=== PATIENT | male | born 1970 | race Caucasian/White ===

== ENCOUNTER → 2018-02-24 16:18 | Outpatient (CLI) | payer BC, SELFPAY ==
[2018-02-24 17:34] LABS: AST(SGOT) 33 U/L (15-37); Alanine Aminotransfer ALT/SGPT 51 U/L (16-61); Alkaline Phosphatase 100 U/L (45-117); Bilirubin, Direct 0.11 mg/dL (0.00-0.30); Cholesterol 150 mg/dL (200); High Density Lipoprotein 46 mg/dL; Triglycerides 180 mg/dL; Very Low Density Lipoprotein 36 mg/dL (5-40)
== END ==
PROVIDERS: Family Provider Family Medicine; PCP Family Medicine; Visit Provider Family Medicine
DX: E78.5 Hyperlipidemia, unspecified (principal)
CPT/HCPCS: 36415; 80061; 80076

== ENCOUNTER 2019-01-07 09:07 | Observation (INO) | payer BC, SELFPAY ==
[2019-01-07] VITALS (8 sets, daily range): BP systolic 120–150; BP diastolic 72–98; PULSE 77–98; RESP 16–18; TEMP 36.4–37.2; O2SAT 97–99; BMI 32.6; BMI 32.1
--- NOTE | 2019-01-07 09:34 | RAD_ITS ---
STUDY: X-RAY CHEST REASON FOR EXAM: Male, 48 years old. Chest pain. TECHNIQUE: Single AP portable view of the chest. COMPARISON: Comparison is made with prior study dated November 19, 2010. FINDINGS: EKG electrodes are seen. The lungs are clear and expanded. There is no demonstrated pleural abnormality. There is borderline cardiomegaly. Normal mediastinum and joceline. Normal visualized pulmonary arteries. There is atherosclerotic tortuosity of the aortic arch and descending thoracic aorta. There are mild degenerative changes of the visualized thoracic spine. Normal visualized ribs, clavicles, and shoulders. There is no demonstrated abnormality of the visualized soft tissue structures of the upper abdomen. RAD/Chest 1 View (Portable) IMPRESSION: Borderline cardiomegaly. Electronically Signed: Poncho Ugarte, at 10:16 EDT , Service support ,
--- NOTE | 2019-01-07 09:34 | EKG12_ITS ---
Test Reason : CP Blood Pressure : / mmHG Vent. Rate : 097 BPM Atrial Rate : 097 BPM P-R Int : 176 ms QRS Dur : 104 ms QT Int : 362 ms P-R-T Axes : 052 074 019 degrees QTc Int : 459 ms Normal sinus rhythm Incomplete right bundle branch block Borderline ECG Confirmed by TSERING CANALES, JOI ([id number]), film editor supervisor JAE SHEPPARD ([id number]) on 01/10/2019 11:14:29 AM Referred By: BALDO Confirmed By:JOI CAGLE MD
--- NOTE | 2019-01-07 09:45 | ED.DCSUM_ITS ---
- ER Visit Summary Date of Service: 01/07/19 Chief Complaint: Chest pain History of Present Illness: The patient is a 48 M who presents with chest pain that began this morning. Patient states the pain came on rather suddenly. Patient describes the pain as a heaviness and pressure. Patient states that it felt like an elephant was sitting on his chest earlier today. Now, the patient states that it only feels like a cow was sitting on his chest. Patient admits to some shortness of breath. Patient admits to a very slight cough. Patient states he has had a fever of 100.6 today. Patient also admits to some lightheadedness. Patient denies any diaphoresis. Patient denies any nausea or vomiting. Patient denies any PE risk factors. Cardiac risk factors include hypertension, hypercholesterolemia, and family history of coronary artery disease. Physical Examination: Vital signs are stable. Patient is afebrile. Patient is in no acute distress. Oral mucosa is pink and moist. Neck is supple. Trachea is midline. There is no JVD noted. Heart was regular rate and rhythm. Lungs are clear and equal bilateral. Abdomen is soft. Bowel sounds are normal. There is no tenderness. There is no guarding noted. Skin is warm dry. Cranial nerves II through XII are intact. There are no focal motor or sensory deficits noted. The remaining physical exam is within normal limits. Test Results: EKG showed normal sinus rhythm with a rate of 97. There is some T wave inversion noted in lead III only. BC, basic metabolic profile, and troponin were obtained. Portable chest x-ray does not show any evidence of acute cardiopulmonary process. Emergency Department Course and Treatment: Patient had aspirin prior to arrival. Patient was given sublingual nitroglycerin here with no improvement of his pain. Patient was given a dose of morphine. Patient has a HEART score of 5. Case was discussed with the hospitalist. Patient will be admitted for observation. Patient understood and was agreeable with the plan. All questions were answered. Disposition: Admit for observation Impression: Chest pain This note was generated with [employer] dictation software. It may contain incorrect words, spelling, and punctuation that were not noted in review of the chart prior to signing ED Disposition - Plan for ED Patient: Disposition: Acute Care [facility] Diagnosis: Chest pain Referrals: Lee Stewart MD [Primary Care Provider] -
[2019-01-07 09:49] LABS: Absolute Lymphocyte Count 0.72 X10^3/ul (0.83-4.51); Absolute Neutrophil Count 8.6 X10^3/uL (2.0-7.7); Basophil# 0.02 X10^3/uL; Basophil% 0.2 % (0-1); Eosinophil# 0.08 X10^3/uL; Eosinophils% 0.8 % (0-5); Hematocrit 42.4 % (40-54); Hemoglobin 14.3 g/dl (13.0-16.5); Lymphocyte # 0.72 X10^3/ul (4.0); Lymphocyte % 7.2 % (19-41); Mean Corp Hgb Conc 33.7 g/gl (32-36); Mean Corpuscular Hgb 28.3 pg (27.0-32.0); Mean Platelet Vol. 10.1 fl (6.2-12.0); Monocyte# 0.65 X10^3/uL; Monocyte% 6.5 % (0-10); Neutrophil # 8.57 X10^3/uL (2.7-7.7); Neutrophil % 85.1 % (47-70); Platelet Count 279 K/mm3 (150-450); RBC Distribution Width CV 13.5 % (11.6-14.6); RBC Distribution Width SD 40.7 fl (35.1-43.9); Red Blood Count 5.05 M/mm3 (4.6-6.2); White Blood Count 10.1 K/mm3 (4.4-11.0)
[2019-01-07 09:50] LABS: POSITIVE COUNT NO; POSITIVE DIFFERENTIAL NO; POSITIVE MORPHOLOGY NO
[2019-01-07 10:01] LABS: Anion Gap 6 (5-15); BUN 19 mg/dL (7-18); BUN/Creat Ratio 19.3 RATIO (10-20); Calcium,Total 8.9 mg/dL (8.5-10.1); Chloride 103 mmol/L (98-107); Creatinine, Serum 0.99 mg/dL (0.70-1.30); EST Glomerular Filtration Rate 86 mL/min (>60); Est Glom Filt Rate - Afr Amer 104 mL/min (>60); Estimated Creatinine Clearance 87.32 ml/min; Glucose 93 mg/dL (74-106); Potassium 3.8 mmol/L (3.5-5.1); Sodium Level 137 mmol/L (136-145)
[2019-01-07] MEDS: Acetaminophen 500 MG Tablet 1000 MG PO (10:23)
--- NOTE | 2019-01-07 11:32 | PN_ITS ---
Patient Problems: Active and Suspected Problems Chest pain (Acute) Vitals/I&O's: Vital Signs Temp Pulse Resp BP Pulse Ox 97.6 F L 83 18 120/98 H 98 01/07/19 09:08 01/07/19 11:31 01/07/19 11:31 01/07/19 11:31 01/07/19 11:31 Oxygen Delivery Method Room Air Weight: 97.5 kg Body Mass Index (BMI) 32.6 Laboratory Results 01/07/19 09:24: WBC 10.1, RBC 5.05, Hgb 14.3, Hct 42.4, MCV 84.0, MCH 28.3, MCHC 33.7, RDW 13.5, RDW Differential 40.7, Plt Count 279, MPV 10.1, Immature Gran % (Auto) 0.200, Neut % (Auto) 85.1 H, Lymph % (Auto) 7.2 L, [place] % (Auto) 6.5, Eos % (Auto) 0.8, Baso % (Auto) 0.2, Absolute Neuts (auto) 8.6 H, Absolute Lymphs (a uto) 0.72 L, Total Counted Not Reportable 01/07/19 09:24: Sodium 137, Potassium 3.8, Chloride 103, Carbon Dioxide 28.0, Anion Gap 6, BUN 19 H, Creatinine 0.99, Estim Creat Clear Calc 87.32, Est GFR (MDRD) Af Amer 104, Est GFR (MDRD) Non-Af 86, BUN/Creatinine Ratio 19.3, Glucose 93, Calcium 8.9, Troponin I < 0.015 Medical Necessity - Tobacco Use Smoking Status: Former smoker Assessment/Plan All Active Problems Chest pain (Acute)
--- NOTE | 2019-01-07 12:50 | EKG12_ITS ---
Test Reason : CP ADMISSION Blood Pressure : / mmHG Vent. Rate : 069 BPM Atrial Rate : 069 BPM P-R Int : 160 ms QRS Dur : 108 ms QT Int : 402 ms P-R-T Axes : 013 047 -10 degrees QTc Int : 430 ms Normal sinus rhythm Incomplete right bundle branch block Borderline ECG When compared with ECG of 07-JAN-2019 09:07, MANUAL COMPARISON REQUIRED, DATA IS UNCONFIRMED Confirmed by TSERING CANALES, JOI ([id number]), legal editor JAE SHEPPARD ([id number]) on 01/11/2019 8:12:02 AM Referred By: POORNIMA Confirmed By:JOI CAGLE MD
--- NOTE | 2019-01-07 13:26 | STEWCON_ITS ---
Reason For Study: CHEST PAIN Stress Results Protocol: Syd Protocol WITH DEFINITY Maximum Predicted HR: 171 bpm Target HR: 145 bpm % Maximum Predicted HR: 88 % DurationHeart Rate Stage (mm:ss) (bpm) BP Comment BASELINE 73 122/800.3 ML DEFINITY STAGE 1 3:00 103 142/62 STAGE 2 3:00 114 162/68 STAGE 3 3:00 127 170/60 STAGE 4 1:16 150 / 0.2 ML DEFINITY RECOVERY 99 140/700.1 ML DEFINITY Stress Duration: 10:16 mm:ss Maximum Stress HR: 150 bpm Baseline Echocardiogram Findings Stress Echo Wall motion Data Resting WM Intermediate WM Stress WM Resting Wall Motion Wall Motion Stress No regional wall motion No regional wall motion abnormalities noted. abnormalities noted. Ejection Fraction 55 %. Ejection Fraction 70 %. Interpretation Summary Exercise stress echo. 48-year-old male with a history of chest pain. Stress protocol: Resting EKG demonstrates normal sinus rhythm with a rate of 78 bpm normal intervals are noted resting blood pressure 122/80 mmHg. The patient exercised according to regular Syd protocol for total duration of 10 minutes and 16 seconds completing 1 minute and 16 seconds to stage IV of the Syd protocol. The maximum heart rate was 155 bpm which was 90% of maximum predicted heart rate the maximum workload was 13.4 metabolic equivalents. At rest there were no ST or T wave changes noted suggest ischemia peak exercise upsloping ST changes only were noted with no meet the criteria for ischemia. The resting blood pressure 122/80 with a peak blood pressure 170/70 mmHg. Rate pressure product was 22,700 Stress echocardiographic images. Resting and stress echocardiogram for images were performed with and without definitive. The resting echocardiogram demonstrated no wall motion abnormalities noted with an ejection fraction of 55%. The stress echocardiogram demonstrated no wall motion abnormalities with thickening of all huston and reduction in left ventricular cavity size. The peak ejection fraction was 70%. Conclusion: Normal exercise stress test and stress echocardiographic imaging with no evidence of ischemia at a high workload. Excellent functional aerobic capacity Ordering Physician: Stella Blevins Performed By: Augusta Sellers, HARLEY, RVT
--- NOTE | 2019-01-07 13:27 | PCM.HP.STD ---
Problem List (1) Hypertension Status: Chronic Qualifiers: Hypertension type: essential hypertension Qualified Code(s): I10 - Essential (primary) hypertension (2) Hyperlipidemia Status: Acute Qualifiers: Hyperlipidemia type: unspecified Qualified Code(s): E78.5 - Hyperlipidemia, unspecified (3) Chest pain Status: Acute Qualifiers: Chest pain type: unspecified Qualified Code(s): R07.9 - Chest pain, unspecified History of Present Illness Date of Admission: 01/07/19 Chief Complaint: Chest pain The patient is a 48 year old M with past medical history of hypertension, hyperlipidemia who comes in with complaints of chest pain described as a dull ache or feeling of something sitting on his chest associated with some lightheadedness. His admitting vitals show temperature of 97.6F, heart rate was 98, blood pressure is 150/94, respiratory rate was 18, SPO2 is 98% on room air. His admitting blood work showed WBC count of 10.1, hemoglobin 14.3, platelet 279. BMP was unremarkable. Patient's admitting EKG showed T wave inversion in lead III only. His troponins are negative. Past Medical History Past Medical History (Chronic Problems): Chronic Problems Hypertension (Chronic) Allergies No Known Allergies Allergy (Verified 12/24/14 12:52) Home Medications: Ambulatory Orders Medication Instructions Recorded Lisinopril/Hydrochlorothiazide 1 tab PO DAILY 01/07/19 [Lisinopril-Hctz 10-12.5 mg Tab] Rosuvastatin Calcium [Crestor] 10 mg PO DAILY 01/07/19 Surgical History: appendectomy, cataract Psychiatric History: No pertinent psych hx Lives: Spouse/ Significant Other Smoking Status: Former smoker Tobacco Use: Non-smoker Alcohol: None Drugs: None - *Family History Maternal History Items: Heart Disease Paternal History Items: Heart Disease Review of Systems Constitutional: Denies: Anorexia, Chills, Fever, Malaise, Weakness, Weight Change Eyes: Denies: Blurred vision, Cataracts, Conjunctivae Inflammation HEENT: Denies: Difficulty Hearing, Difficulty Swallowing, Head Aches, Hearing Changes, Sinus Congestion, Sinus Drainage Cardiovascular: Denies: Chest Pain, Claudication, Chest Pressure, Light Headedness, Orthopnea, Palpitations Respiratory: Denies: Cough, Hemoptysis, Shortness of breath at rest, Shortness of breath upon exertion, Sputum production Gastrointestinal: Denies: Abdominal Pain, Nausea, Vomiting Genitourinary: Denies: Dysuria, Frequency Musculoskeletal: Denies: Joint Pain, Joint stiffness, Joint swelling, Joint Tenderness Skin: Denies: Rash, Wounds Neurological: Denies: Difficulty swallowing, Focal weakness, Numbness, Tingling Psychiatric: Denies: Anxiety, Depression, Homicidal Ideations, Suicidal Ideations Hematologic/ Lymphatic: Denies: Easy Bruising, Easy Bleeding VTE Information - Inpt Only VTE Present on Admission: No VTE Pharm Prophylaxis ordered?: Yes - Physical Exam General: Alert, Oriented x3, Cooperative, No apparent distress HEENT: Atraumatic, PERRLA, EOMI, Normocephalic Oral: Moist Mucosa Neck: Supple Lungs: Clear to auscultation, Normal air movement Cardiovascular: Regular rate, Regular Rhythm, Normal S1, Normal S2, No murmurs Abdomen: Bowel Sounds Present, Soft, Non Tender, Non-Distended, No Hepato-splenomegaly Extremities: No edema Skin: No rashes, No breakdown Musculoskeletal: No Tenderness to Palpation of Joints or Extremities Lymphatic: No Cervical, Supraclavicular, or Inguinal Adenopathy Neurological: Cranial nerves II-XII grossly intact, Neuro grossly intact Psych/Mental Status: Normal Affect, Appropriate Vital Signs Temp Pulse Resp BP Pulse Ox 99.0 F 77 16 129/79 H 97 01/07/19 13:00 01/07/19 13:00 01/07/19 13:00 01/07/19 13:00 01/07/19 13:00 Oxygen Flow Rate (L/min) 2 Oxygen Delivery Method Room Air Weight: 95.8 kg Body Mass Index (BMI) 32.1 Laboratory Tests Past 24 Hrs 01/07/19 01/07/19 01/07/19 09:24 09:24 12:45 WBC 10.1 RBC 5.05 Hgb 14.3 Hct 42.4 MCV 84.0 MCH 28.3 MCHC 33.7 RDW 13.5 RDW Differential 40.7 Plt Count 279 MPV 10.1 Immature Gran % (Auto) 0.200 Neut % (Auto) 85.1 H Lymph % (Auto) 7.2 L [place] % (Auto) 6.5 Eos % (Auto) 0.8 Baso % (Auto) 0.2 Absolute Neuts (auto) 8.6 H Absolute Lymphs (auto) 0.72 L Total Counted Not Reportable Sodium 137 Potassium 3.8 Chloride 103 Carbon Dioxide 28.0 Anion Gap 6 BUN 19 H Creatinine 0.99 Estim Creat Clear Calc 87.32 Est GFR (MDRD) Af Amer 104 Est GFR (MDRD) Non-Af 86 BUN/Creatinine Ratio 19.3 Glucose 93 Calcium 8.9 Troponin I < 0.015 Pending Assessment/Plan All Active Problems Chest pain (Acute) Hyperlipidemia (Acute) 48 year old M with past medical history of hypertension, hyperlipidemia who comes in with complaints of chest pain described as a dull ache or feeling of something sitting on his chest associated with some lightheadedness. 1. Chest pain, atypical, the patient has multiple risk factors, stable vitals, admitting EKG was unremarkable, troponins x1 is negative Plan: Admit to PCU, cycle cardiac enzymes, aspirin 81 mg daily, stress ECHO 2. Hypertension, controlled, continue on a home regimen 3. Hyperlipidemia, on statin 4. DVT PPx- Lovenox SC Code Visit Inpatient E&M: 47908 Init Hosp L2
--- NOTE | 2019-01-07 16:36 | DCINST_ITS ---
- Discharge Diagnoses Current Active Problems: Current Active and Chronic Problems Chest pain (Acute) Reason(s) for Visit for Discharge Instructions: Chest pain You will use the following diet at home:: Cardiac Your food should be the consistency of: Regular Your liquids should be the consistency of: Regular/Thin Discharge Activity: Return to Normal Activity Additional Instructions: Continue to take all your medications. Follow a low salt, low fat diet. Follow-up with your PCP within 1-2 weeks. Allergies/Adverse Reactions: Allergies No Known Allergies Allergy (Verified 12/24/14 12:52) Medications to take at Discharge Lisinopril/Hydrochlorothiazide [Lisinopril-Hctz 10-12.5 mg Tab] 1 tab PO DAILY 01/07/19 Rosuvastatin Calcium [Crestor] 10 mg PO DAILY 01/07/19 Primary Care Physician: Lee Stewart MD [Primary Care Provider] - Please follow up with your Primary Care Physician in: within 1-2 weeks Test Results: Test results from this visit will be discussed in further detail at your follow- up appointment, if applicable. Proposed Discharge Date: 01/07/19
--- NOTE | 2019-01-07 16:36 | PCM.DC.SUM ---
Discharge Date and Diagnosis Date of Admission: 01/07/19 Date of Discharge: 01/07/19 - Primary Discharge Diagnosis Active and Suspected Problems Chest pain (Acute) Hospital Course and Treatment Imaging Results: 01/07/19 09:34 Chest 1 View (Portable) [RAD] Stat 01/07/19 13:26 Stress Test Echo W/Contrast [ECHO] Routine Clinical Impression(s) from Imaging Studies Chest X-Ray 01/07/19 09:34 IMPRESSION: Borderline cardiomegaly. Electronically Signed: Poncho Restreporyan, at 10:16 EDT , Service support , None Operations: None Procedures: Stress test Summary of Care Provided: The patient is a 48 year old M with past medical history of hypertension, hyperlipidemia who comes in with complaints of chest pain that felt like an elephant, a lion and later a sheep on sitting on his chest. He felt slightly dizzy and decided to come to the emergency department. Patient's admitting vitals were stable. EKG was unremarkable except for T wave inversion in lead III, was negative. Underwent stress echo that was negative. He continues to remain asymptomatic and was discharged to follow-up with his primary doctor within 1-2 weeks. Subjective: See H & P Objective: See H & P - Physical Exam Vital Signs Temp Pulse Resp BP Pulse Ox 99.0 F 88 16 129/79 H 97 01/07/19 13:00 01/07/19 15:45 01/07/19 13:00 01/07/19 13:00 01/07/19 13:00 Oxygen Flow Rate (L/min) 2 Oxygen Delivery Method Room Air Weight: 95.8 kg Body Mass Index (BMI) 32.1 Laboratory Tests Past 24 Hrs 01/07/19 01/07/19 01/07/19 09:24 09:24 12:45 WBC 10.1 RBC 5.05 Hgb 14.3 Hct 42.4 MCV 84.0 MCH 28.3 MCHC 33.7 RDW 13.5 RDW Differential 40.7 Plt Count 279 MPV 10.1 Immature Gran % (Auto) 0.200 Neut % (Auto) 85.1 H Lymph % (Auto) 7.2 L [place] % (Auto) 6.5 Eos % (Auto) 0.8 Baso % (Auto) 0.2 Absolute Neuts (auto) 8.6 H Absolute Lymphs (auto) 0.72 L Total Counted Not Reportable Sodium 137 Potassium 3.8 Chloride 103 Carbon Dioxide 28.0 Anion Gap 6 BUN 19 H Creatinine 0.99 Estim Creat Clear Calc 87.32 Est GFR (MDRD) Af Amer 104 Est GFR (MDRD) Non-Af 86 BUN/Creatinine Ratio 19.3 Glucose 93 Calcium 8.9 Troponin I < 0.015 < 0.015 01/07/19 15:55 WBC RBC Hgb Hct MCV MCH MCHC RDW RDW Differential Plt Count MPV Immature Gran % (Auto) Neut % (Auto) Lymph % (Auto) [place] % (Auto) Eos % (Auto) Baso % (Auto) Absolute Neuts (auto) Absolute Lymphs (auto) Total Counted Sodium Potassium Chloride Carbon Dioxide Anion Gap BUN Creatinine Estim Creat Clear Calc Est GFR (MDRD) Af Amer Est GFR (MDRD) Non-Af BUN/Creatinine Ratio Glucose Calcium Troponin I Pending Discharge Diet: Low fat/ Low Cholesterol, 2000 mg Sodium Diet Discharge Activity: Return to Normal Activity Home Medications: Medications to take at Discharge Lisinopril/Hydrochlorothiazide [Lisinopril-Hctz 10-12.5 mg Tab] 1 tab PO DAILY 01/07/19 Rosuvastatin Calcium [Crestor] 10 mg PO DAILY 01/07/19 Primary Care Physician: Lee Stewart MD [Primary Care Provider] - Please follow up with your Primary Care Physician in: within 1-2 weeks Disposition: Home Minutes spent on discharge:: 40 Patient Condition:: Stable Medical Necessity - Tobacco Use Smoking Status: Former smoker Tobacco Use: Non-smoker Meaningful Use Info Meaningful Use Diagnoses (Choose all that apply): None applicable Code Visit OBSV E&M: 44891 Observation care discharge
== END 2019-01-07 16:34 | disposition home or self-care (01) ==
LOC: ED 11:29 → PCU 11:44
PROVIDERS: Admitting Provider Internal Medicine; Emergency Provider Emergency Medicine; Family Provider Family Medicine; PCP Family Medicine; Visit Provider Internal Medicine
DX: R07.89 Other chest pain (principal); R06.02 Shortness of breath; I10 Essential (primary) hypertension; R42 Dizziness and giddiness; E78.5 Hyperlipidemia, unspecified; Z79.899 Other long term (current) drug therapy; Z82.49 Family history of ischemic heart disease and other diseases of the circulatory system; Z87.891 Personal history of nicotine dependence
CPT/HCPCS: 36415; 71045; 80048; 84484; 85025; 93005; 93017; 93350; 99218; 99283; Q9957; A4216; C8928; G0378

== ENCOUNTER 2020-02-07 18:41 | Emergency (ER) | payer BC, SELFPAY ==
[2019-01-07 13:02] VITALS: BMI 32.1
--- NOTE | 2020-02-07 | CT_ITS ---
STUDY: CT ABDOMEN AND PELVIS WITHOUT CONTRAST REASON FOR EXAM: Male, 49 years old. Lower abdominal pain. Elevated WBCs. RADIATION DOSAGE (If Supplied By Facility): CTDIvol = ( 15.80 ) mGy, DLP = ( 116.15 ) mGycm TECHNIQUE: Transaxial images were obtained from the dome of the diaphragm to the symphysis pubis without oral contrast, and without intravenous contrast. Sagittal and coronal images were reconstructed. Individualized dose optimization techniques were used for this CT. COMPARISON: None. FINDINGS: The visualized lung bases are unremarkable. The visualized portions of the heart are within normal limits. Mild hepatic steatosis with focal fatty sparing the gallbladder fossa. There is no evidence of mass. Normal gallbladder and extrahepatic biliary system. Normal spleen. Normal pancreas. Normal bilateral adrenal glands. Normal right kidney. There is a small cortical cyst in the mid left kidney. The left kidney is otherwise unremarkable. Normal visualized ureters. Normal visualized stomach. Normal small intestine. There is sigmoid diverticulitis without perforation. There is stranding of the perisigmoid fat with thickening of the fascia along the left pelvic sidewall. No abscess. The proximal colon is unremarkable. There are surgical clips in the region of the appendix consistent with a prior appendectomy. There is diffuse atherosclerotic calcification of the abdominal aorta, without a demonstrated aneurysm. Normal inferior vena cava. Normal retroperitoneum. Normal urinary bladder. Is normal in size. There is focal calcifications. There is no pelvic lymphadenopathy. No free air or free fluid is seen within the peritoneal cavity. Small bilateral inguinal hernias of omental fat. The abdominal wall is otherwise unremarkable. There are diffuse degenerative changes of the visualized lumbar spine. CT/Abdomen/Pelvis W IV Cont ONLY IMPRESSION: 1. Uncomplicated sigmoid diverticulitis. 2. Fatty infiltration of the liver. 3. Bilateral inguinal hernias. 4. Small left renal cyst. 5. Degenerative changes of the lumbar spine Electronically Signed: Tej Choudhary DO at 20:05 EDT Tel [phone], Service support ,
[2020-02-07 18:41] VITALS: BP 125/87; PULSE 102; RESP 16; TEMP 36.2
[2020-02-07 18:42] VITALS: BP 125/87; PULSE 102; RESP 16; TEMP 36.2; BMI 33.2
--- NOTE | 2020-02-07 19:07 | ED.VIS.GI ---
History of Present Illness Chief Complaint: Abd Pain Informant: Patient - Abdominal Pain/Flank Pain Onset: Today Context: Gradual Onset Timing: Continuous, Waxes and wanes Quality: Stabbing Location: - - lower central abdomen Worsened by: Nothing Relieved by: Nothing - Nausea/Vomiting/Emesis GI Symptom: Negative for: Nausea, Vomiting - Diarrhea/Melena/Hematochezia GI Symptom: - - looser stools than normal. Negative for: Diarrhea, Melena, Hematochezia Onset: Today Stool Quality: Loose Severity: Moderate Associated Symptoms: Negative for: Dysuria, Frequency, Hematuria, Urgency Narrative: Patient is a 49-year-old male with history of hypertension presenting with 1 day of lower abdominal pain. Patient states he noticed it when he woke up from sleep. He states it is been constant throughout the day but waxes and wanes in intensity. He describes it as stabbing in nature. He denies any radiation of pain. He states he had a bowel movement today which was slightly looser than normal but he would not describe it as diarrhea. He denies any melena or bright red blood per rectum. He denies associated nausea or vomiting. He did not take anything for pain prior to arrival. He states the pain somewhat reminds him of the pain when he had appendicitis. He denies any pain with a bowel movement today. He denies any testicular pain. He denies any urinary symptoms. He denies any other complaints at this time. Past Medical History - Allergies and Home Meds Allergies/Adverse Reactions: Allergies No Known Allergies Allergy (Verified 12/24/14 12:52) Primary Care Physician: Lee Stewart MD [Primary Care Provider] - Past Medical History: - - Hypertension Surgical History: appendectomy, cataract Smoking Status: Former smoker - Family History Maternal Family History: Reports: Heart Disease Paternal Family History: Reports: Heart Disease Review of Systems General: Denies: Chills, Fever, Sweats Eyes: Denies: Visual changes - bilaterally, Diplopia ENT: Denies: Rhinorrhea, Sore throat Cardiovascular: Denies: Chest pain, Palpitations Respiratory: Denies: Dyspnea, Cough, Dyspnea on exertion Gastrointestinal: Reports: Abdominal pain. Denies: Nausea, Vomiting, Diarrhea, Melena, Hematochezia Genitourinary: Denies: Dysuria, Hematuria, Frequency Musculoskeletal: Denies: Back pain, Extremity Pain Skin: Denies: Rash, Wounds Neurological: Denies: Headache, Weakness, Numbness Physical Exam Vital Signs/Narrative: Vital Signs Temp Pulse Resp BP 02/07/20 18:42 97.1 F L 102 H 16 125/87 H 02/07/20 18:41 97.1 F L 102 H 16 125/87 H Inital Vital Signs reviewed: Yes General: Well nourished, Well developed, No Acute Distress Head: Normocephalic, Atraumatic Eyes: Perrl, EOMI ENT: Moist mucous membranes, No rhinorrhea Neck: Supple, Nontender Cardiovascular: Regular rate, Regular rhythm, No murmurs Respiratory: No distress, CTA bilaterally, Chest nontender Abdomen: Soft, Nondistended, Normal bowel sounds, Tender - Suprapubic region. Negative for: Guarding, Rebound tenderness Back: Nontender, Normal Inspection. Negative for: CVA tenderness Extremities: Nontender, No edema Skin: Normal color, No rash Neurological: Alert, Oriented x3, Cranial nerves II-XII grossly intact, Normal Strength, Normal Sensation Psychological: Normal affect, Normal Mood Diagnostic/Tx/Re-eval Clinical Impression(s) from Imaging Studies Abdomen/Pelvis CT 02/07/20 00:00 IMPRESSION: 1. Uncomplicated sigmoid diverticulitis. 2. Fatty infiltration of the liver. 3. Bilateral inguinal hernias. 4. Small left renal cyst. 5. Degenerative changes of the lumbar spine Electronically Signed: Tej Choudhary DO at 20:05 EDT Tel [phone], Service support , Laboratory Data 02/07/20 02/07/20 19:01 19:01 WBC 12.2 H RBC 5.27 Hgb 14.8 Hct 44.3 MCV 84.1 MCH 28.1 MCHC 33.4 RDW Std Deviation 39.7 RDW Coeff of Elena 13.1 Plt Count 286 MPV 10.1 Immature Gran % (Auto) 0.400 Neut % (Auto) 81.4 H Lymph % (Auto) 9.3 L [place] % (Auto) 8.1 Eos % (Auto) 0.6 Baso % (Auto) 0.2 Absolute Neuts (auto) 9.9 H Absolute Lymphs (auto) 1.14 Nucleated RBC % 0 Sodium 139 Potassium 3.6 Chloride 107 Carbon Dioxide 26.0 Anion Gap 6 BUN 13 Creatinine 1.06 Estim Creat Clear Calc 80.66 Est GFR (MDRD) Af Amer 95 Est GFR (MDRD) Non-Af 78 BUN/Creatinine Ratio 12.3 Glucose 85 Calcium 9.0 Total Bilirubin 0.90 AST 23 ALT 42 Alkaline Phosphatase 95 Total Protein 7.6 Albumin 3.9 Globulin 3.7 Albumin/Globulin Ratio 1.1 Lipase 129 - Medical Decision Making Evaluated for 1 day of lower abdominal pain. He has mild tenderness in his lower abdomen but does not have any peritoneal signs. Exam is otherwise benign. Patient is mildly tachycardic. He is not on anything for pain in the emergency room. Lab work is significant for mild leukocytosis. CT shows uncomplicated sigmoid diverticulitis. This is consistent with patient's clinical presentation. As he is tolerating p.o. and well-appearing I think he is a good pain candidate for outpatient follow-up. He started on Augmentin. He is given first dose in the emergency room. He will be given a short course of [place] for significant pain if needed. Patient is counseled on signs and symptoms requiring return to the emergency room. Patient verbalizes agreement and understand this plan. Patient discharged home in stable and improved condition. ED Disposition - Plan for ED Patient: Disposition: Home or Assisted Living Diagnosis: Acute diverticulitis Instructions: ED Diverticulitis Prescriptions: Amoxicillin/Potassium Clav [Augmentin 875-125 Tablet] 1 ea PO BID #14 tab Prescription Printed Hydrocodone Bitart/Apap 5-325 [[place] 5MG-325MG] 1 tab PO Q6H PRN PRN 2 Days #10 tab PRN Reason: Pain Prescription Printed Referrals: Lee Stewart MD [Primary Care Provider] - Additional Instructions: Follow-up with your primary care doctor in 1 week for recheck. Return the emergency room if you have worsening symptoms including fever, vomiting or worsening pain.
[2020-02-07 19:18] LABS: Absolute Lymphocyte Count 1.14 X10^3/uL (0.83-4.51); Absolute Neutrophil Count 9.9 X10^3/uL (2.0-7.7); Basophil# 0.03 X10^3/uL; Basophil% 0.2 % (0-1); Eosinophil# 0.07 X10^3/uL; Eosinophils% 0.6 % (0-5); Hematocrit 44.3 % (40-54); Hemoglobin 14.8 g/dL (13.0-16.5); Lymphocyte # 1.14 X10^3/ul (4.0); Lymphocyte % 9.3 % (19-41); Mean Corp Hgb Conc 33.4 g/dL (32-36); Mean Corpuscular Hgb 28.1 pg (27.0-32.0); Mean Corpuscular Volume 84.1 fL (80-94); Mean Platelet Vol. 10.1 fl (6.2-12.0); Monocyte# 0.99 X10^3/uL; Monocyte% 8.1 % (0-10); NRBC Flagged by Analyzer 0 % (0-5); Neutrophil # 9.94 X10^3/uL (2.7-7.7); Neutrophil % 81.4 % (47-70); Platelet Count 286 K/mm3 (150-450); RBC Distribution Width CV 13.1 % (11.6-14.6); RBC Distribution Width SD 39.7 fl (35.1-43.9); Red Blood Count 5.27 M/mm3 (4.6-6.2); White Blood Count 12.2 K/mm3 (4.4-11.0)
[2020-02-07 19:32] LABS: ALB/GLOB Ratio 1.1 RATIO (0.9-2.4); AST(SGOT) 23 U/L (15-37); Alanine Aminotransfer ALT/SGPT 42 U/L (16-61); Albumin, Serum 3.9 g/dL (3.2-5.0); Alkaline Phosphatase 95 U/L (45-117); Anion Gap 6 (5-15); BUN 13 mg/dL (7-18); BUN/Creat Ratio 12.3 RATIO (10-20); Chloride 107 mmol/L (98-107); Creatinine, Serum 1.06 mg/dL (0.70-1.30); EST Glomerular Filtration Rate 78 mL/min (>60); Est Glom Filt Rate - Afr Amer 95 mL/min (>60); Estimated Creatinine Clearance 80.66 ml/min; Globulin 3.7 g/dL (2.2-4.2); Glucose 85 mg/dL (74-106); Lipase 129 U/L (73-393); Potassium 3.6 mmol/L (3.5-5.1); Protein, Total 7.6 g/dL (6.4-8.2); Sodium Level 139 mmol/L (136-145)
[2020-02-07] MEDS: 0.9% Normal Saline 1,000 ML 1000 ML IV (19:45)
[2020-02-07] MEDS: Amox/Clavulanate 875 MG Tablet PO (20:52)
[2020-02-07 20:56] LABS: Bacteria 0 SEEN /hpf (None Seen); Mucous, Urine 0 SEEN /hpf (<or=2+); Red Blood Cells-Urine 0 SEEN /hpf (0-5); Squamous Epithelial Cells - UA 0 SEEN /hpf (0-5); White Blood Cells 0 SEEN /hpf (0-5)
[2020-02-07 21:00] LABS: Color, Urine Yellow (Yellow); Glucose, Dipstick Normal (Normal); Ketone-Dipstick Negative (Negative); Leukocyte Esterase-Dipstick Negative /ul (Negative); Nitrite-Dipstick Negative (Negative); Occult Blood-Urine Negative /ul (Negative); Protein-Dipstick Negative (Negative); Urine Bilirubin Dipstick Negative (Negative); Urine Clarity Clear (Clear); Urine Urobilinogen Normal (Normal); Urine pH 6.5 (5.0 - 8.0)
== END 2020-02-07 21:24 | disposition home or self-care (01) ==
PROVIDERS: Emergency Provider Emergency Medicine; PCP Family Medicine
DX: K57.32 Diverticulitis of large intestine without perforation or abscess without bleeding (principal); I10 Essential (primary) hypertension; Z87.891 Personal history of nicotine dependence
CPT/HCPCS: 74177; 80053; 81001; 83690; 85025; 96360; 99284; J7030; Q9967; A4216

== ENCOUNTER → 2020-06-26 08:01 | Outpatient (CLI) | payer BC, SELFPAY ==
[2020-06-26 08:54] LABS: AST(SGOT) 31 U/L (15-37); Alanine Aminotransfer ALT/SGPT 51 U/L (16-61); Albumin, Serum 3.9 g/dL (3.2-5.0); Alkaline Phosphatase 116 U/L (45-117); Bilirubin, Direct 0.15 mg/dL (0.00-0.30); Cholesterol 143 mg/dL (200); Globulin 3.7 g/dL (2.2-4.2); High Density Lipoprotein 46 mg/dL; Protein, Total 7.6 g/dL (6.4-8.2); Triglycerides 205 mg/dL; Very Low Density Lipoprotein 41 mg/dL (5-40)
== END ==
PROVIDERS: PCP Family Medicine; Referring Provider Family Medicine; Visit Provider Family Medicine
DX: E78.5 Hyperlipidemia, unspecified (principal)
CPT/HCPCS: 36415; 80061; 80076

== ENCOUNTER → 2020-12-11 08:30 | Outpatient (CLI) | payer BC, SELFPAY ==
[2020-12-11 10:00] LABS: Absolute Lymphocyte Count 1.16 X10^3/uL (0.83-4.51); Absolute Neutrophil Count 4.1 X10^3/uL (2.0-7.7); Basophil# 0.04 X10^3/uL; Basophil% 0.7 % (0-1); Eosinophil# 0.17 X10^3/uL; Eosinophils% 2.8 % (0-5); Hematocrit 46.8 % (40-54); Lymphocyte # 1.16 X10^3/ul (4.0); Lymphocyte % 18.9 % (19-41); Mean Corp Hgb Conc 32.1 g/dL (32-36); Mean Corpuscular Hgb 27.3 pg (27.0-32.0); Mean Corpuscular Volume 85.2 fL (80-94); Mean Platelet Vol. 10.1 fl (6.2-12.0); Monocyte# 0.55 X10^3/uL; NRBC Flagged by Analyzer 0 % (0-5); Neutrophil # 4.14 X10^3/uL (2.7-7.7); Neutrophil % 67.5 % (47-70); Platelet Count 299 K/mm3 (150-450); RBC Distribution Width CV 13.3 % (11.6-14.6); RBC Distribution Width SD 41.7 fl (35.1-43.9); Red Blood Count 5.49 M/mm3 (4.6-6.2); White Blood Count 6.1 K/mm3 (4.4-11.0)
[2020-12-11 10:24] LABS: AST(SGOT) 28 U/L (15-37); Alanine Aminotransfer ALT/SGPT 63 U/L (16-61); Albumin, Serum 3.9 g/dL (3.2-5.0); Alkaline Phosphatase 106 U/L (45-117); Anion Gap 7 (5-15); BUN 16 mg/dL (7-18); BUN/Creat Ratio 15.8 RATIO (10-20); Calcium,Total 8.9 mg/dL (8.5-10.1); Chloride 107 mmol/L (98-107); Cholesterol 171 mg/dL (200); Creatinine, Serum 1.01 mg/dL (0.70-1.30); EST Glomerular Filtration Rate 83 mL/min (>60); Est Glom Filt Rate - Afr Amer 100 mL/min (>60); Globulin 3.8 g/dL (2.2-4.2); Glucose 98 mg/dL (74-106); High Density Lipoprotein 50 mg/dL; PSA,Total - Annual Screen 0.79 ng/mL (0.00-4.00); Potassium 4.1 mmol/L (3.5-5.1); Protein, Total 7.7 g/dL (6.4-8.2); Sodium Level 140 mmol/L (136-145); Triglycerides 200 mg/dL; Very Low Density Lipoprotein 40 mg/dL (5-40)
== END ==
PROVIDERS: PCP Family Medicine; Referring Provider Family Medicine; Visit Provider Family Medicine
DX: Z00.00 Encounter for general adult medical examination without abnormal findings (principal); E78.5 Hyperlipidemia, unspecified; I10 Essential (primary) hypertension; Z12.5 Encounter for screening for malignant neoplasm of prostate
CPT/HCPCS: 36415; 80053; 80061; 84153; 85025; G0103

== ENCOUNTER → 2021-07-13 08:41 | Outpatient (CLI) | payer BC, SELFPAY ==
[2021-07-13 09:31] LABS: AST(SGOT) 24 U/L (15-37); Alanine Aminotransfer ALT/SGPT 43 U/L (16-61); Albumin, Serum 3.7 g/dL (3.2-5.0); Alkaline Phosphatase 104 U/L (45-117); Anion Gap 5 (5-15); BUN 15 mg/dL (7-18); BUN/Creat Ratio 15.9 RATIO (10-20); Calcium,Total 9.3 mg/dL (8.5-10.1); Chloride 109 mmol/L (98-107); Cholesterol 149 mg/dL (200); Creatinine, Serum 0.94 mg/dL (0.70-1.30); EST Glomerular Filtration Rate 89 mL/min (>60); Est Glom Filt Rate - Afr Amer 108 mL/min (>60); Globulin 3.7 g/dL (2.2-4.2); Glucose 97 mg/dL (74-106); High Density Lipoprotein 48 mg/dL; Protein, Total 7.4 g/dL (6.4-8.2); Sodium Level 140 mmol/L (136-145); Triglycerides 171 mg/dL; Very Low Density Lipoprotein 34 mg/dL (5-40)
== END ==
PROVIDERS: PCP Family Medicine; Referring Provider Family Medicine; Visit Provider Family Medicine
DX: I10 Essential (primary) hypertension (principal); E78.5 Hyperlipidemia, unspecified
CPT/HCPCS: 36415; 80053; 80061

== ENCOUNTER 2021-09-23 14:34 | Emergency (ER) | payer BC, SELFPAY ==
[2021-09-23 14:35] VITALS: BP 147/101; PULSE 75; RESP 18; TEMP 36.3; O2SAT 100; BMI 34.9
--- NOTE | 2021-09-23 14:55 | CT_ITS ---
STUDY: CTA CHEST REASON FOR EXAM: Male, 51 years old. Dissection RADIATION DOSAGE (If Supplied By Facility): CTDIvol = ( 19.51 ) mGy, DLP = ( 1344.06 ) mGycm TECHNIQUE: The examination was performed with the intravenous administration of IV 100mL Isovue-370. Post-processing of the angiographic images was performed, with multiplanar reformation and 3D reconstruction. Individualized dose optimization techniques were used for this CT. COMPARISON: None. FINDINGS: Normal enhancement of the main pulmonary artery and right and left pulmonary arteries. Normal enhancement of the bilateral peripheral pulmonary arteries. There is no demonstrated pulmonary embolism. Normal thoracic aorta and visualized great vessels. There is no demonstrated aortic dissection. Normal heart and pericardium. Normal mediastinum. Normal hilar regions. Normal visualized trachea and bronchi. The lungs are well expanded. Normal pulmonary parenchyma. Normal pleura. Normal chest wall structures. Normal osseous structures. Abdominal aorta: No demonstrated narrowing. Celiac and superior mesenteric arteries: No demonstrated narrowing. Inferior mesenteric artery: No demonstrated narrowing. Right renal artery(arteries): No demonstrated narrowing. Left renal artery(arteries): No demonstrated narrowing. Right common iliac artery: No demonstrated narrowing. Right external iliac artery: No demonstrated narrowing. Right internal iliac artery: No demonstrated narrowing. Left common iliac artery: No demonstrated narrowing. Left external iliac artery: No demonstrated narrowing. Left internal iliac artery: No demonstrated narrowing. RIGHT LOWER EXTREMITY Right common femoral artery: No demonstrated narrowing. LEFT LOWER EXTREMITY Left common femoral artery: No demonstrated narrowing. Fatty liver. Fatty density in the inguinal canals. Small fatty umbilical hernia. CT/CTA Chst, Abd, Pel W and/or WO IMPRESSION: No CT evidence of aortic dissection or aneurysm. Electronically Signed: Rinku Bowen DO at 17:24 EST Tel [phone], Service support ,
--- NOTE | 2021-09-23 14:55 | EKG12_ITS ---
Test Reason : CP Blood Pressure : / mmHG Vent. Rate : 070 BPM Atrial Rate : 070 BPM P-R Int : 156 ms QRS Dur : 102 ms QT Int : 404 ms P-R-T Axes : 016 061 029 degrees QTc Int : 436 ms Normal sinus rhythm Poor R wave progression Confirmed by BRUCE CANALES, IRINEO ([id number]), editor & co founder JAE SHEPPARD ([id number]) on 09/25/2021 9:54:14 AM Referred By: CHRISTIANNE Confirmed By:IRINEO BARRERA MD
[2021-09-23 15:11] VITALS: O2SAT 98
[2021-09-23] MEDS: Aspirin 81 MG TAB.CHEW 324 MG PO (15:23)
[2021-09-23 15:25] LABS: Absolute Lymphocyte Count 1.14 X10^3/uL (0.83-4.51); Absolute Neutrophil Count 4.4 X10^3/uL (2.0-7.7); Basophil# 0.02 X10^3/uL; Basophil% 0.3 % (0-1); Eosinophil# 0.06 X10^3/uL; Hematocrit 45.5 % (40-54); Hemoglobin 15.1 g/dL (13.0-16.5); Lymphocyte # 1.14 X10^3/ul (0.83-4.51); Lymphocyte % 18.1 % (19-41); Mean Corp Hgb Conc 33.2 g/dL (32-36); Mean Corpuscular Volume 84.4 fL (80-94); Mean Platelet Vol. 10.1 fl (6.2-12.0); Monocyte# 0.65 X10^3/uL; Monocyte% 10.3 % (0-10); NRBC Flagged by Analyzer 0 % (0-5); Neutrophil # 4.39 X10^3/uL (2.7-7.7); Neutrophil % 69.8 % (47-70); Platelet Count 327 K/mm3 (150-450); RBC Distribution Width SD 39.8 fl (35.1-43.9); Red Blood Count 5.39 M/mm3 (4.6-6.2); White Blood Count 6.3 K/mm3 (4.4-11.0)
[2021-09-23 15:41] LABS: Anion Gap 8 (5-15); BUN 14 mg/dL (7-18); BUN/Creat Ratio 13.9 RATIO (10-20); Calcium,Total 9.6 mg/dL (8.5-10.1); Chloride 104 mmol/L (98-107); Creatinine, Serum 1.01 mg/dL (0.70-1.30); EST Glomerular Filtration Rate 82 mL/min (>60); Est Glom Filt Rate - Afr Amer 100 mL/min (>60); Estimated Creatinine Clearance 82.77 ml/min; Glucose 98 mg/dL (74-106); Potassium 3.7 mmol/L (3.5-5.1); Sodium Level 141 mmol/L (136-145); Troponin-I HS 5 pg/mL (3.0-78.0)
[2021-09-23 15:49] VITALS: BP 138/87; PULSE 75; RESP 19; O2SAT 97
--- NOTE | 2021-09-23 16:36 | ED.VIS.CHEST ---
HPI History of Present Illness Chief Complaint: Chest Pain Narrative Narrative: Patient presenting for evaluation secondary to low back pain and chest pain. Patient reports that he was at work today, he had a gradual onset of atraumatic low back pain. He reports that is bilateral in his lower back and seems to be worse with change in position. Patient denies any bowel or bladder incontinence. Denies any fevers chills night sweats. Denies any radiation to his legs. He denies any saddle anesthesia. Patient was concerned because he then had a onset of a feeling of heartburn and left arm numbness. States that it was associated with somewhat of a feeling of shortness of breath. There is not exertional component to this. He denies any visual changes numbness or weakness associated with this. Never had any prior similar episodes in the past. Review of systems otherwise negative. [facility] Medical History Hemorrhoids Shoulder pain Home Medications lisinopril-hydrochlorothiazide 1 tab PO DAILY 01/07/19 [History Last Taken 02/07/20] rosuvastatin 10 mg PO DAILY 01/07/19 [History Last Taken 02/07/20] Allergy/AdvReac Type Severity Reaction Status Date / Time No Known Allergies Allergy Verified 09/23/21 14:38 Surgical History History of ankle surgery History of appendectomy Social History Smoking Status: Former smoker ROS ROS ED Constitutional Constitutional ED: Reports other Details: Denies recent surgeries, or injections ; Denies chills, fever(s), sweats or weight loss Cardiovascular Cardiovascular: Reports as per HPI Respiratory/Chest Respiratory/Chest: Denies dyspnea Gastrointestinal Gastrointestinal: Reports other Details: Denies Bowel Incontinence ; Denies abdominal pain Genitourinary Genitourinary ED: Reports other Details: Denies Bladder Incontinence Musculoskeletal Musculoskeletal: Reports back pain Integumentary Reports other Details: No Petechiae ; Denies rash Neurologic Neurologic: Reports other Details: Denies Numbness, or Weakness Psychiatric Psychiatric: Reports other Details: Denies history of IV Drug abuse Hematologic/Lymphatic Hematologic/Lymphatic: Denies lymphadenopathy EXAM Physical Exam Const Vital Signs: 09/23/21 14:35 12/20/21 14:38 09/23/21 15:11 Temperature 97.3 F L Temperature Source Temporal Pulse Rate 75 Respiratory Rate 18 Respiratory Effort Normal Non-Labored Blood Pressure 147/101 H Blood Pressure Mean 116 Pulse Ox 100 98 Oxygen Delivery Method Room Air Room Air 09/23/21 15:49 Temperature Temperature Source Pulse Rate 75 Respiratory Rate 19 H Respiratory Effort Blood Pressure 138/87 H Blood Pressure Mean 104 Pulse Ox 97 Oxygen Delivery Method Room Air Positive well nourished and well developed General Appearance ED: well developed and NAD HEENT Reports normocephalic and head/scalp atraumatic Eyes EOMs intact bilaterally Neck supple Resp normal respiratory effort and clear to auscultation bilaterally Cardio regular rate, regular rhythm and no murmurs Bruits: other Other Details: 2+ Radial Pulses 2+ DP Pulses 2+ PT Pulses Peripheral Pulses: radial pulses present, posterior tibial pulses present and dorsalis pedis pulses present GI normal to inspection, nondistended, normoactive bowel sounds, soft to palpation and non-tender Palpation: Negative for pulsatile mass Back/Spine normal to inspection Thoracic Spine / Upper Back: Negative for thoracic spinal tenderness Lumbar Spine / Lower Back: straight leg raise negative bilaterally; Negative for lumbar spinal tenderness Extremity normal to inspection Extremity Narrative: 2+ radial, 2+ PT pulses bilaterally symmetric Neuro oriented x3 and no sensory deficits noted Neuro Narrative: Motor: Hip flexion Knee flexion Knee extension Dorsiflexion Plantar Flexion Extensor Hallicus longus Sensorium / Orientation: alert Sensory Exam: other Motor Exam: strength 5/5 throughout Deep Tendon Reflexes: Rt Patellar (L4): 2+, Lt Patellar (L4): 2+, Rt Ankle (S1): 2+ and Lt Ankle (S1): 2+ Deep Tendon Reflexes Back: Rt Patellar (L4): 2+, Lt Patellar (L4): 2+, Rt Ankle (S1): 2+ and Lt Ankle (S1): 2+ Plantar Reflex: Other: bilateral (No pathologic clonus) Psych mental status grossly normal Skin no rashes or lesions noted Trauma: other No petechiae Heart Score History: Slightly/Non-Suspicious ECG: Normal Age: >45 - <65 years Risk Factors: 1 or 2 Risk Factors Troponin: </= Normal Limit Score: 2 MDM MDM MDM Narrative Medical decision making narrative: Patient presented for evaluation secondary to chest pain low back pain. Given patient's pain above and below the diaphragm there was at least some concern for the possibility of dissection. Work-up was obtained. Patient was given aspirin in the emergency department. CBC chemistry high-sensitivity troponin noted to be negative. EKG was noted to be unremarkable. Repeat evaluation of the patient at 1650 shows him to have symptomatic improvement of his chest and arm pain but continues to have low back pain he was given Tylenol for this. Patient's heart score is maximum of 2, his CT angiograms are currently pending. Should this result as negative the patient is appropriate for discharge as his pain in his low back likely is musculoskeletal. Patient's imaging will be followed up on by the oncoming physician. Lab Data Labs: Laboratory Results - last 24 hr 09/23/21 09/23/21 14:40 14:40 WBC 6.3 RBC 5.39 Hgb 15.1 Hct 45.5 MCV 84.4 MCH 28.0 MCHC 33.2 RDW Std Deviation 39.8 RDW Coeff of Elena 13.0 Plt Count 327 MPV 10.1 Immature Gran % (Auto) 0.500 Neut % (Auto) 69.8 Lymph % (Auto) 18.1 L [place] % (Auto) 10.3 H Eos % (Auto) 1.0 Baso % (Auto) 0.3 Absolute Neuts (auto) 4.4 Absolute Lymphs (auto) 1.14 Nucleated RBC % 0 Sodium 141 Potassium 3.7 Chloride 104 Carbon Dioxide 29.0 Anion Gap 8 BUN 14 Creatinine 1.01 Estim Creat Clear Calc 82.77 Est GFR (MDRD) Af Amer 100 Est GFR (MDRD) Non-Af 82 BUN/Creatinine Ratio 13.9 Glucose 98 Calcium 9.6 Troponin I High Sens 5 EKG Initial EKG: Attestation: I personally reviewed and interpreted this EKG as follows: (Sinus rhythm of [address] segments normal T waves normal IL and QTc intervals no evidence acute ischemia or arrhythmia.) Discharge Plan Triage Chief Complaint: Chest Pain ED Provider: Tello Briceno Dx/Rx/DC Orders Clinical Impression: Chest pain, Low back pain Instructions: ED Back Exercises, Lumbar, ED Chest Pain, Uncertain Cause Prescriptions: No Action lisinopril-hydrochlorothiazide 1 EACH tablet 1 tab PO DAILY RF: 0 rosuvastatin 10 MG tablet 10 mg PO DAILY RF: 0 Primary Care Provider: Lee Stewart Referrals: Lee Stewart MD [Primary Care Provider] - 3-5 Days Disposition Disposition: Home, Self Care
[2021-09-23] MEDS: Acetaminophen 500 MG Tablet 1000 MG PO (17:36)
[2021-09-23 17:40] VITALS: BP 153/89; PULSE 86; RESP 19; O2SAT 98
== END 2021-09-23 17:52 | disposition home or self-care (01) ==
PROVIDERS: Emergency Provider Emergency Medicine; PCP Family Medicine
DX: R07.9 Chest pain, unspecified (principal); M54.50 Low back pain, unspecified; Z87.891 Personal history of nicotine dependence
CPT/HCPCS: 71275; 74174; 80048; 84484; 85025; 93005; 99283; Q9967; A4216

== ENCOUNTER 2021-12-27 07:21 | Outpatient (CLI) | payer BC, SELFPAY ==
[2021-12-27 09:25] LABS: Absolute Lymphocyte Count 1.04 X10^3/uL (0.83-4.51); Absolute Neutrophil Count 2.8 X10^3/uL (2.0-7.7); Basophil# 0.02 X10^3/uL; Basophil% 0.5 % (0-1); Eosinophils% 2.3 % (0-5); Hematocrit 43.9 % (40-54); Hemoglobin 14.9 g/dL (13.0-16.5); Lymphocyte # 1.04 X10^3/ul (0.83-4.51); Lymphocyte % 23.5 % (19-41); Mean Corp Hgb Conc 33.9 g/dL (32-36); Mean Corpuscular Hgb 28.7 pg (27.0-32.0); Mean Corpuscular Volume 84.4 fL (80-94); Mean Platelet Vol. 10.3 fl (6.2-12.0); Monocyte# 0.45 X10^3/uL; Monocyte% 10.2 % (0-10); NRBC Flagged by Analyzer 0 % (0-5); Neutrophil # 2.79 X10^3/uL (2.7-7.7); Neutrophil % 62.8 % (47-70); Platelet Count 286 K/mm3 (150-450); RBC Distribution Width CV 12.9 % (11.6-14.6); RBC Distribution Width SD 39.5 fl (35.1-43.9); White Blood Count 4.4 K/mm3 (4.4-11.0)
[2021-12-27 10:02] LABS: ALB/GLOB Ratio 1.1 RATIO (0.9-2.4); AST(SGOT) 33 U/L (15-37); Alanine Aminotransfer ALT/SGPT 60 U/L (16-61); Albumin, Serum 3.9 g/dL (3.2-5.0); Alkaline Phosphatase 103 U/L (45-117); Anion Gap 6 (5-15); BUN 18 mg/dL (7-18); BUN/Creat Ratio 20.2 RATIO (10-20); Calcium,Total 8.6 mg/dL (8.5-10.1); Chloride 108 mmol/L (98-107); Cholesterol 146 mg/dL (200); Creatinine, Serum 0.89 mg/dL (0.70-1.30); EST Glomerular Filtration Rate 95 mL/min (>60); Est Glom Filt Rate - Afr Amer 115 mL/min (>60); Globulin 3.6 g/dL (2.2-4.2); Glucose 92 mg/dL (74-106); High Density Lipoprotein 42 mg/dL; PSA,Total - Annual Screen 0.96 ng/mL (0.00-4.00); Potassium 3.8 mmol/L (3.5-5.1); Protein, Total 7.5 g/dL (6.4-8.2); Sodium Level 138 mmol/L (136-145); Triglycerides 152 mg/dL; Very Low Density Lipoprotein 30 mg/dL (5-40)
== END 2021-12-27 23:59 | disposition home or self-care (01) ==
PROVIDERS: PCP Family Medicine; Referring Provider Family Medicine; Visit Provider Family Medicine
DX: Z00.00 Encounter for general adult medical examination without abnormal findings (principal); E78.5 Hyperlipidemia, unspecified; I10 Essential (primary) hypertension; Z12.5 Encounter for screening for malignant neoplasm of prostate
CPT/HCPCS: 36415; 80053; 80061; 84153; 85025; G0103

== ENCOUNTER → 2022-04-10 | Outpatient (CLI) | payer BC, SELFPAY ==
--- NOTE | 2022-04-10 16:07 | EKG12_ITS ---
Test Reason : Blood Pressure : / mmHG Vent. Rate : 069 BPM Atrial Rate : 069 BPM P-R Int : 154 ms QRS Dur : 114 ms QT Int : 408 ms P-R-T Axes : -15 148 128 degrees QTc Int : 437 ms Normal sinus rhythm Left posterior fascicular block Poor R wave progression Abnormal ECG Confirmed by BRUCE CANALES, IRINEO ([id number]), associate entertainment editor JAE SHEPPARD ([id number]) on 04/11/2022 9:49:35 AM Referred By: Confirmed By:IRINEO BARRERA MD
[2022-04-10 17:15] LABS: Hematocrit 40.5 % (40-54); Mean Corp Hgb Conc 34.6 g/dL (32-36); Mean Corpuscular Hgb 28.6 pg (27.0-32.0); Mean Corpuscular Volume 82.7 fL (80-94); Mean Platelet Vol. 9.9 fl (6.2-12.0); Platelet Count 312 K/mm3 (150-450); RBC Distribution Width SD 39.1 fl (35.1-43.9); White Blood Count 6.5 K/mm3 (4.4-11.0)
[2022-04-10 18:12] LABS: Anion Gap 5 (5-15); BUN 16 mg/dL (7-18); BUN/Creat Ratio 18.4 RATIO (10-20); Calcium,Total 9.2 mg/dL (8.5-10.1); Chloride 108 mmol/L (98-107); Creatinine, Serum 0.87 mg/dL (0.70-1.30); EST Glomerular Filtration Rate 98 mL/min (>60); Est Glom Filt Rate - Afr Amer 118 mL/min (>60); Glucose 95 mg/dL (74-106); Potassium 3.6 mmol/L (3.5-5.1); Sodium Level 140 mmol/L (136-145)
== END | disposition home or self-care (01) ==
PROVIDERS: PCP Family Medicine; Visit Provider Orthopaedic Surgery
DX: Z01.810 Encounter for preprocedural cardiovascular examination (principal)
CPT/HCPCS: 36415; 80048; 85027; 93005

== ENCOUNTER 2023-06-26 18:03 | Emergency (ER) | payer BC, SELFPAY ==
[2023-06-26 18:06] VITALS: BP 166/99; PULSE 73; RESP 18; TEMP 36.3; O2SAT 99; BMI 33.7
--- NOTE | 2023-06-26 18:08 | EKG12_ITS ---
Test Reason : CP Blood Pressure : / mmHG Vent. Rate : 069 BPM Atrial Rate : 069 BPM P-R Int : 154 ms QRS Dur : 102 ms QT Int : 400 ms P-R-T Axes : 020 072 019 degrees QTc Int : 428 ms Normal sinus rhythm Incomplete right bundle branch block Borderline ECG Confirmed by PRIYA CANALES, TRIPP ([id number]), assistant film editor ERICK MARTÍNEZ ([id number]) on 06/30/2023 10:30:29 AM Referred By: Confirmed By:ALTAGRACIA POWERS MD
[2023-06-26 18:26] LABS: Absolute Lymphocyte Count 0.71 X10^3/uL (0.83-4.51); Absolute Neutrophil Count 4.1 X10^3/uL (2.0-7.7); Basophil# 0.03 X10^3/uL; Basophil% 0.5 % (0-1); Eosinophil# 0.06 X10^3/uL; Eosinophils% 1.1 % (0-5); Hematocrit 42.2 % (40-54); Hemoglobin 14.1 g/dL (13.0-16.5); Lymphocyte # 0.71 X10^3/ul (0.83-4.51); Lymphocyte % 12.6 % (19-41); Mean Corp Hgb Conc 33.4 g/dL (32-36); Mean Corpuscular Hgb 28.2 pg (27.0-32.0); Mean Corpuscular Volume 84.4 fL (80-94); Mean Platelet Vol. 9.8 fl (6.2-12.0); Monocyte# 0.73 X10^3/uL; NRBC Flagged by Analyzer 0 % (0-5); Neutrophil # 4.06 X10^3/uL (2.7-7.7); Neutrophil % 72.3 % (47-70); Platelet Count 228 K/mm3 (150-450); RBC Distribution Width CV 13.1 % (11.6-14.6); RBC Distribution Width SD 40.2 fl (35.1-43.9); White Blood Count 5.6 K/mm3 (4.4-11.0)
--- NOTE | 2023-06-26 18:38 | RAD_ITS ---
STUDY: X-RAY CHEST REASON FOR EXAM: Male, 53 years old. chest pain TECHNIQUE: Single AP portable view of the chest. COMPARISON: 01/07/2019 FINDINGS: The lungs are clear and expanded. There is no demonstrated pleural abnormality. Normal size heart. Normal mediastinum and joceline. Normal visualized pulmonary arteries. Normal visualized aortic arch and descending thoracic aorta. Normal visualized thoracic spine. Normal visualized ribs, clavicles, and shoulders. There is no demonstrated abnormality of the visualized soft tissue structures of the upper abdomen. RAD/Chest 1 View (Portable) IMPRESSION: Normal x-ray examination of the chest. Electronically Signed: Parminder Pulliam MD at 18:56 EDT ,
[2023-06-26 18:43] LABS: Anion Gap 2 (5-15); BUN 18 mg/dL (7-18); BUN/Creat Ratio 16.8 RATIO (10-20); Calcium,Total 9.3 mg/dL (8.5-10.1); Chloride 107 mmol/L (98-107); Creatinine, Serum 1.07 mg/dL (0.70-1.30); EST Glomerular Filtration Rate 77 mL/min (>60); Est Glom Filt Rate - Afr Amer 93 mL/min (>60); Estimated Creatinine Clearance 76.36 ml/min; Glucose 96 mg/dL (74-106); Potassium 4.2 mmol/L (3.5-5.1); Sodium Level 139 mmol/L (136-145); Troponin-I HS (w/2H Reflex) 8 pg/mL (3.0-78.0)
--- NOTE | 2023-06-26 18:48 | ED.VIS.DYS ---
HPI History of Present Illness Chief Complaint: Chest Pain Detail of Chief Complaint: Left-sided chest pain 15 minutes after abrupt onset of shortness of breath Informant: patient Onset/Context/Timing Onset: Hours (Shortness of breath started 1 hour ago) Context: sudden Timing: Continuous Quality: Positive for Dyspnea on exertion; Negative for Orthopnea, PND or Wheezing Current Severity: Mild Maximum Severity: Severe Worsened by: Exertion (Patient states he cannot walk across the room because he becomes significantly short of breath.) Relieved by: Nothing Associated Symptoms cough and other; Negative for rhinorrhea, post nasal drip, ear pain, fever, sore throat, subjective, chills, sweats, clear sputum, white sputum, yellow sputum or green sputum Chest Pain: Positive for Continuous and Sharp Narrative Narrative: Patient is a 53-year-old male with past medical history hypertension, hyperlipidemia who presents with upper respiratory infectious symptoms started several days ago. They were very minor. He has a cough which is nonproductive. He does report mild congestion and change in voice. 1 hour prior to presentation he had abrupt onset of shortness of breath. He has dyspnea on exertion. He also reported left-sided chest pain that started 15 minutes after the shortness of breath. There is a pleuritic component. He denies history of PE or DVT. He denies any risk factors. He denies leg pain, swelling or discoloration. He denies black or maroon-colored stool. He denies bruising easily. He is not on an anticoagulant. He is a former smoker. He drinks once a week. He denies drug use there is no significant family history of cardiac disease. Nurse triage orders were entered for chest pain work-up. A D-dimer was added. PE Risk Factors: Negative for Cancer, OCP + Smoking + > 35, Prior DVT or PE, Recent immobilization, Recent surgery or Recent travel Prior similar symptoms: No Recent Illness/Hospitalization: No [facility] Medical History Hemorrhoids Hypertension Shoulder pain Home Medications lisinopril 10 mg-hydrochlorothiazide 12.5 mg tablet 1 tab PO DAILY Blood Pressure 01/07/19 [History Last Taken 02/07/20] rosuvastatin 10 mg tablet 10 mg PO DAILY Cholesterol 01/07/19 [History Last Taken 02/07/20] Allergy/AdvReac Type Severity Reaction Status Date / Time No Known Allergies Allergy Verified 06/26/23 18:06 Surgical History History of ankle surgery History of appendectomy Social History Smoking Status: Former smoker ROS ROS ED Constitutional Constitutional ED: Denies chills, fever(s), sweats or weight loss Eyes Eyes: Denies blurry vision, change in vision or diplopia ENT ENT ED: Reports sore throat; Denies ear pain or rhinorrhea Cardiovascular Cardiovascular: Reports chest pain; Denies orthopnea, palpitations, paroxysmal nocturnal dyspnea or racing heartbeat Respiratory/Chest Respiratory/Chest: Reports cough, dyspnea and dyspnea on exertion; Denies orthopnea, paroxysmal nocturnal dyspnea or sputum Gastrointestinal Gastrointestinal: Denies abdominal pain, melena, nausea or vomiting Genitourinary Genitourinary ED: Denies dysuria, hematuria or urinary frequency Musculoskeletal Musculoskeletal: Denies arthralgias, back pain, myalgias or neck pain Integumentary Denies abscess, Abrasions or rash Neurologic Neurologic: Denies headache(s), paresthesias or weakness Psychiatric Psychiatric: Reports anxiety Endocrine Endocrinology: Denies cold intolerance or heat intolerance Hematologic/Lymphatic Hematologic/Lymphatic: Denies easy bleeding or easy bruising EXAM Physical Exam Const Vital Signs: 06/26/23 18:06 06/26/23 18:35 06/26/23 18:36 Temperature 97.3 F L Temperature Source Temporal Pulse Rate 73 Respiratory Rate 18 Respiratory Effort Short of Breath Blood Pressure 166/99 H Blood Pressure Mean 121 Pulse Ox 99 Oxygen Delivery Method Room Air Room Air 06/26/23 18:38 Temperature Temperature Source Pulse Rate Respiratory Rate Respiratory Effort Short of Breath Blood Pressure Blood Pressure Mean Pulse Ox Oxygen Delivery Method Room Air Positive well nourished, well developed and obese Constitutional Narrative: Patient appears tachypneic and spite of triage documentation respirate of 18. General Appearance ED: well developed; Negative for pallor Nutritional Appearance: obese HEENT Reports moist mucous membranes HEENT Narrative: Posterior pharynx out erythema or exudate. Head is normocephalic and atraumatic. Ears are normal. Nares are patent. There is no postnasal drainage noted. Eyes PERRL and EOMs intact bilaterally General Eye ED: Negative for pale conjunctiva or scleral icterus Neck no lymphadenopathy, supple, no meningeal signs and no JVD Neck Narrative: Trachea is midline. There is no in-store expiratory stridor. Patient does have mild dysphonia. Resp normal respiratory effort and clear to auscultation bilaterally Cardio regular rate, regular rhythm, S1 normal heart sound, S2 normal heart sound and no murmurs GI non-tender, non-distended and no masses Auscultation: normoactive bowel sounds Palpation: soft Back/Spine no CVA tenderness Extremity normal to inspection Extremity Narrative: There is no asymmetry, swelling, discoloration, leg vein distention, palpable cords or tenderness along the distribution of the deep venous system. Neuro oriented x3, CN's II-XII intact bilaterally and no sensory deficits noted [place] Coma Scale: document GCS findings Spontaneous Obeys Commands Oriented 15 Sensorium / Orientation: alert Speech: speech normal Psych mental status grossly normal Skin no wounds and skin turgor normal General Skin Exam: Negative for jaundice or pallor MDM MDM MDM Narrative Medical decision making narrative: With abrupt onset of shortness of breath dyspnea on exertion pleuritic chest pain PE needs to be considered. Patient is low probability for PE. D-dimer was obtained. Acute dyspnea followed by chest pain may represent atypical presentation for cardiac disease. Also need to entertain possibility of pneumothorax. EKG, chest x-ray, blood work with 2-hour troponin and D-dimer were ordered. Portable chest x-ray was entered per nursing staff. Lab Data Attestation: I reviewed the patient's lab results. Lab results narrative: White count and H&H are normal. Basic metabolic panel is normal. First troponin is normal. D-dimer is normal. Labs: Laboratory Results - last 24 hr 06/26/23 06/26/23 06/26/23 18:20 18:50 20:32 WBC 5.6 RBC 5.00 Hgb 14.1 Hct 42.2 MCV 84.4 MCH 28.2 MCHC 33.4 RDW Std Deviation 40.2 RDW Coeff of Elena 13.1 Plt Count 228 MPV 9.8 Immature Gran % (Auto) 0.500 Neut % (Auto) 72.3 H Lymph % (Auto) 12.6 L [place] % (Auto) 13.0 H Eos % (Auto) 1.1 Baso % (Auto) 0.5 Absolute Neuts (auto) 4.1 Absolute Lymphs (auto) 0.71 L Nucleated RBC % 0 D-Dimer Quant (PE/DVT) < 0.27 L Sodium 139 Potassium 4.2 Chloride 107 Carbon Dioxide 30.0 Anion Gap 2 L BUN 18 Creatinine 1.07 Estim Creat Clear Calc 76.36 Est GFR (MDRD) Af Amer 93 Est GFR (MDRD) Non-Af 77 BUN/Creatinine Ratio 16.8 Glucose 96 Calcium 9.3 Troponin I High Sens 8 7 2-hour troponin is 7 with a delta of -1. With a normal EKG 2-hour troponin is 7 likelihood of cardiac disease is less than 1%. Patient was discharged to home. Suspect this is due to upper respiratory infection. Radiography Chest X-Ray - ED: 1 View (Single view portable chest x-ray was independently interpreted by me at 1850 as normal. Cardiac silhouette and size normal. Hilar region normal. Lung parenchyma normal. Osseous structures are normal.) Diagnostic Testing: Clinical Impression(s) from Imaging Studies Chest X-Ray 06/26/23 18:38 IMPRESSION: Normal x-ray examination of the chest. Electronically Signed: Parminder Pulliam MD at 18:56 EDT , Radiology report was read. Discharge Plan Triage Chief Complaint: Chest Pain Other Complaint: Shortness of Breath ED Provider: Britton Menjivar Dx/Rx/DC Orders Clinical Impression: Acute upper respiratory infection, Pleuritic chest pain, Acute dyspnea Instructions: ED Pleurisy, ED URI, Viral, No Abx (Adult) Prescriptions: No Action lisinopril-hydrochlorothiazide 1 EACH tablet 1 tab PO DAILY Patient Comments: TAKE 1 TABLET BY MOUTH EVERY DAY rosuvastatin 10 MG tablet 10 mg PO DAILY Primary Care Provider: Lee Stewart Referrals: Lee Stewart MD [Primary Care Provider] - 1 Week if not improving Activity Restrictions/Additional Instructions: 1. You may take 600 mg of ibuprofen every 6-8 hours for your left-sided chest pain 2. If you are sick greater than 1 additional week follow-up with Dr. Stewart because you may need antibiotics 3 treatment is symptomatic at this time Disposition Disposition: Home, Self Care
[2023-06-26 19:09] LABS: D-Dimer Quantitative (DVT/PE) < 0.27 FEU/ug/m (0.27-0.49)
[2023-06-26 20:23] LABS: Reflex Troponin-HS? (from REC) Y
[2023-06-26 20:58] LABS: Troponin-I HS 7 pg/mL (3.0-78.0)
[2023-06-26 21:03] VITALS: BP 142/56; PULSE 68; O2SAT 98
== END 2023-06-26 21:41 | disposition home or self-care (01) ==
PROVIDERS: Emergency Provider Emergency Medicine; PCP Family Medicine; Visit Provider Emergency Medicine
DX: J06.9 Acute upper respiratory infection, unspecified (principal); R07.81 Pleurodynia; R06.00 Dyspnea, unspecified; E66.9 Obesity, unspecified; Z87.891 Personal history of nicotine dependence
CPT/HCPCS: 71045; 80048; 84484; 85025; 85379; 93005; 99285; A4216

== ENCOUNTER → 2023-10-03 | Outpatient (CLI) | payer BC, SELFPAY ==
--- OUTSIDE RECORDS SUMMARY | 2023-10-03 08:23 | XMS RPT_ITS | CCD ---
Author Name Unknown Address [id number] [place] [address] Organization [facility] Care Team Providers Care Trade Promotion Analyst Name Role Phone Felice Brar Unavailable SELF, SELF Referring Unavailable Terry CANALES, Lee Salazar Primary Care Provider Lee Stewart MD Primary Care Provider Lee Stewart MD Primary Care Provider Lee Stewart MD Primary Care Provider Medications Current Medications Medication Drug Class(es) Dates Sig (Normalized) Sig (Original) amoxicillin 875 mg / clavulanate 125 mg oral tablet (1 source) Penicillin-class Antibacterial Start: 01-25-2022 End: 01-30-2022 take 1 tablet by mouth twice daily amoxicillin-clav ulanic acid (AUGMENTIN) 875-125 mg per tablet Take 1 tablet by mouth twice daily for 5 days. 10 tablet 0 01/25/2022 01/30/2022 Active Completed/Discontinued Medications Medication Drug Class(es) Dates Sig (Normalized) Sig (Original) hydroCHLOROthiazide 12.5 mg / lisinopril 10 mg oral tablet (6 sources) Thiazide Diuretic, Angiotensin Converting Enzyme Inhibitor Start: 01-22-2023 take 10-12.5 mg by mouth once lisinopril-hydroC HLOROthiazide (ZESTORETIC) 10-12.5 mg per tablet Indications: Essential (primary) hypertension TAKE 1 TABLET BY MOUTH EVERY DAY 30 tablet 0 01/22/2023 Active Problems Active Problems Problem Classification Problem Date Documented Da te Episodic/Chronic Essential hypertension (4 sources) Hypertensive disorder; Translations: [Essential hypertension] 08-28-2017 Chronic Other upper respiratory disease (1 source) Congestion of nasal sinus; Translations: [Nasal congestion] Episodic Past or Other Problems Problem Classification Problem Date Documented Da te Episodic/Chronic Other upper respiratory infections (3 sources) Pharyngitis; Translations: [Acute pharyngitis, unspecified] Onset: 08-28-2017 08-28-2017 Episodic Results Test Name Value Interpretation Reference Range Facil ity Vital Signs Date Time Vital Sign Value Performing Clinician Facility 01-25-2022 08:30-0400 Body temperature 98.01 [degF] Charissa Watters APRN.GENETIC SCIENTIST Work Phone: [facility] 01-25-2022 08:30-0400 Body weight 101.15 kg Charissa Watters APRN.GENETIC SCIENTIST Work Phone: [facility] 01-25-2022 08:30-0400 Diastolic blood pressure 86 mm[Hg] Charissa Watters APRN.GENETIC SCIENTIST Work Phone: [facility] 01-25-2022 08:30-0400 Heart rate 80 /min Charissa Watters APRN.GENETIC SCIENTIST Work Phone: [facility] 01-25-2022 08:30-0400 Respiratory rate 16 /min Charissa Watters APRN.GENETIC SCIENTIST Work Phone: [facility] 01-25-2022 08:30-0400 SaO2% (BldA) [Mass fraction] 97 % Charissa Watters APRN.GENETIC SCIENTIST Work Phone: [facility] 01-25-2022 08:30-0400 Systolic blood pressure 134 mm[Hg] Charissa Watters APRN.GENETIC SCIENTIST Work Phone: [facility] 12-18-2021 11:36-0400 Body temperature 97.11 [degF] Lee Stewart MD Work Phone: [facility] 12-18-2021 11:36-0400 Body weight 103.42 kg Lee Stewart MD Work Phone: [facility] 12-18-2021 11:36-0400 Diastolic blood pressure 86 mm[Hg] Lee Stewart MD Work Phone: [facility] 12-18-2021 11:36-0400 Heart rate 76 /min Lee Stewart MD Work Phone: [facility] 12-18-2021 11:36-0400 Respiratory rate 18 /min Lee Stewart MD Work Phone: [facility] 12-18-2021 11:36-0400 Systolic blood pressure 138 mm[Hg] Lee Stewart MD Work Phone: [facility] 08-28-2017 08:50-0500 BMI (Body Mass Index) 29.12 kg/m2 Felice MARCH [facility] Work Phone: 08-28-2017 08:50-0500 Body Temperature 97.3 [degF] Felice MARCH [facility] Work Phone: 08-28-2017 08:50-0500 BP Diastolic 88 mm[Hg] Felice MARCH [facility] Work Phone: 08-28-2017 08:50-0500 BP Systolic 134 mm[Hg] Felice MARCH [facility] Work Phone: 08-28-2017 08:50-0500 Height 177.8 cm Felice MARCH [facility] Work Phone: 08-28-2017 08:50-0500 Pulse (Heart Rate) 98 /min Felice MARCH [facility] Work Phone: 08-28-2017 08:50-0500 Respiratory Rate 14 /min Felice MARCH [facility] Work Phone: 08-28-2017 08:50-0500 Weight 92.08 kg Felice MARCH [facility] Work Phone: Encounters Encounter Date Encounter Type Care Provider Facility Start: 06-26-2023 Patient encounter procedure [facility] Provider [facility] Department Start: 10-15-2022 Lowell Ewing MD Work Phone: [facility] [place] Procedures Date Procedure Procedure Detail Performing Clinician Start: 08-09-2020 Colonoscopy Lee lopez MD Work Phone: Start: 08-28-2017 End: 08-28-2017 Iaadiadoo streptococcus group a Felice MARCH Work Phone: Plan of Treatment Date Care Activity Detail Author Start: 08-09-2023 Colonoscopy COLONOSCOPY [facility] Start: 08-09-2023 COLORECTAL CANCER SCREENING COLORECTAL CANCER SCREENING [facility] Start: 06-05-2023 Influenza vaccination Influenza Vaccine (#1) [facility] Start: 10-05-2022 DEPRESSION ASSESSMENT DEPRESSION ASSESSMENT [facility] Start: 06-05-2022 Influenza vaccination [facility] Start: 10-05-2021 DEPRESSION ASSESSMENT DEPRESSION ASSESSMENT [facility] Start: 10-03-2021 COVID-19 VACCINE (2 - Booster for Zaki series) COVID-19 VACCINE (2 - Booster for Zaki series) [facility] Start: 2019 SHINGRIX VACCINE (1 of 2) SHINGRIX VACCINE (1 of 2) [facility] Start: 08-28-2017 End: 08-28-2017 Streptococcus.beta-hemoly tic [Presence] in Throat by Organism specific culture *Culture, R/O Strep A Swab [facility] Work Phone: Start: 08-28-2017 End: 08-28-2017 Appointment Appointment [facility] Work Phone: Start: 2014 COLOGUARD (FIT-DNA) COLOGUARD (FIT-DNA) [facility] Start: 2014 Colonoscopy COLONOSCOPY [facility] Start: 2014 COLORECTAL CANCER SCREENING COLORECTAL CANCER SCREENING [facility] Start: [address] COLONOGRAPHY [facility] Start: 2014 DIABETES SCREEN DIABETES SCREEN [facility] Start: 2014 Diabetes Screening Diabetes Screening [facility] Start: 2014 FECAL OCCULT BLOOD FECAL OCCULT BLOOD [facility] Start: 2014 SIGMOIDOSCOPY SIGMOIDOSCOPY [facility] Start: 2004 Lipid 1996 panel - Serum or Plasma Lipid Screening [facility] Start: 2004 LIPID SCREEN LIPID SCREEN [facility] Start: 1988 Urine microalbumin profile [facility] Start: 1987 HEPATITIS C SCREENING HEPATITIS C SCREENING [facility] Start: 1987 HIV SCREENING HIV SCREENING [facility] Start: 1981 Adult depression screening assessment DEPRESSION SCREENING [facility] Start: 1969 HEPATITIS B (1 of 3 - 3-dose series) HEPATITIS B (1 of 3 - 3-dose series) [facility] Start: 1969 Hepatitis B Vaccine (1 of 3 - 3-dose series) Hepatitis B Vaccine (1 of 3 - 3-dose series) [facility] Immunizations Immunization Date Immunization Notes Care Provider [facility] 07-02-2020 influenza, injectabl e, quadrivalent, preservative free Lee Stewart MD Work Phone: [facility] 07-02-2020 influenza virus vacc ine, unspecified formulation [facility] Provider [facility] 08-08-2019 Influenza, injectabl e, Madin [place] Canine Kidney, quadrivalent with preservative Lee Stewart MD Work Phone: [facility] 08-05-2018 influenza, injectabl e, quadrivalent, preservative free Lee Stewart MD Work Phone: [facility] 08-05-2017 influenza nasal, unspecified formulation Lee Stewart MD Work Phone: [facility] Payers Date Payer Category Payer Unknown [id number] 2014 Unknown [employer] PPO OOS [id number] 2014-Present [phone] [address] [place] [address] PPO [id number] 2014 Unknown [employer] PPO OOS [id number] 2014-Present [phone] [address] [place] [address] PPO [id number] 1969 Unknown [id number] Social History Date Type Detail Facility Start: 04-13-2016 End: 06-24-2018 Tobacco smoking status NHIS Ex-smoker [facility] History of tobacco use Cigarette Smoker [facility] Start: 04-13-2016 End: 10-31-2022 Cigarettes smoked current (pack per day) - Reported 1 [facility] Start: 04-13-2016 End: 06-24-2018 Tobacco use and exposure Smokeless tobacco non-user [facility] Start: 01-25-2022 End: 06-11-2022 Alcohol intake Current drinker of alcohol (finding) [facility] Start: 06-07-2010 History SDOH Alcohol Comment rarely [facility] Start: 1970 Sex Assigned At Not on file [facility] Start: 01-15-2022 End: 01-25-2022 Exposure to SARS-CoV-2 (event) Not sure [facility] History of tobacco use Current smoker [facility] Work Phone: Start: 06-11-2022 End: 10-31-2022 Tobacco use panel [facility] National Score (1-10 0), lower number is lower risk 57 [facility] Note 10-15-2022 Telephone Encounter - Modesta Chacon LPN - 10/15/2022 4:38 PM EST Note Date & Type Note Facility 10-15-2022 Miscellaneous Notes Formattin g of this note is different from the original. Pharmacy MyChart message requesting the following refill. Requested Prescriptions Pending Prescriptions Disp Refills lisinopril-hydroCHLOROthiazide (PRINZIDE,ZESTORETIC) 10-12.5 mg per tablet [Pharmacy Med Name: LISINOPRIL-HCTZ 10-12.5 MG TAB] 90 tablet 0 Sig: TAKE 1 TABLET BY MOUTH EVERY DAY Patient last appointment: 12/18/2021 Patient Phone numbers: [phone] (home) [phone] (work) Request is for script(s) to be escript to [facility] pharmacy. Modesta Chacon LPN documented in this encounter [facility] Progress note 01-25-2022 Note Date & Type Note Facility 01-25-2022 Note HNO ID: [id number] Author: Charissa Watters APRN.GENETIC SCIENTIST Service: ? Author Type: Nurse Practitioner Type: Progress Notes Filed: 01/25/2022 8:40 AM Note Text: CC: Patient presents with: Sinus Problem: sinus pressure, drainage, cough x 1 week HPI: Luciano Armando is a 51 year old male who presents to the office with complaint of cough, nonproductive and sinus symptoms for a week. Symptoms are worsening Associated symptoms includes facial pain/pressure and cough. Denies nausea, vomiting and diarrhea. Treatments tried include nothing so far. with no relief of symptoms. Sick contacts: unknown. History of asthma, frequent episodes of bronchitis, chronic bronchitis, bronchiectasis or COPD: No Smoker: No Seasonal/environmental allergies: No The ROS is otherwise negative. The patient's pmh, medications, allergies, and past visits are reviewed. PHYSICAL EXAM: BP 134/86 Pulse 80 Temp 36.7 ?C (98 ?F) Resp 16 Wt 101.2 kg (223 lb) SpO2 97% General appearance: alert, cooperative, pleasant, in no acute distress Head: Normocephalic Eyes: EOM's intact, conjunctiva pink and moist, no icterus, sclera white, non-injected Ears: Right ear: External ear/canal- Normal, TM - clear with good landmarks. Left ear: External ear/canal- Normal, TM - clear with good landmarks Oropharynx:moist without lesions, No erythema, exudates or tonsillar hypertrophy. Heart: Negative. RRR without obvious murmur, gallop, or rubs. No ectopy. Lungs: clear to auscultation, without rales or wheeze, good air exchange PAST MEDICAL HISTORY Diagnosis Date - NEGATIVE MEDICAL HISTORY PAST SURGICAL HISTORY Procedure Laterality Date - ankle 1996 right surgery - LAPAROSCOPIC APPENDECTOMY 2004 - LASIK PROCEDURE 1999 bilat eyes ALLERGIES Patient has no known allergies. MEDICATIONS lisinopril-hydrochlorothiazide (PRINZIDE,ZESTORETIC) 10-12.5 mg per tablet Take 1 tablet by mouth once daily. amoxicillin-clavulanic acid (AUGMENTIN) 875-125 mg per tablet Take 1 tablet by mouth twice daily for 5 days. No family history on file. Social History Tobacco Use - Smoking status: Former Smoker Packs/day: 1.00 Years: 20.00 Pack years: 20.00 Types: Cigarettes - Smokeless tobacco: Never Used Substance Use Topics - Alcohol use: Yes Comment: rarely - Drug use: Not on file ASSESSMENT/PLAN: 1. Sinus congestion - ICD9: 478.19, ICD10: R09.81 Prescription instructions reviewed with patient as applicable. Augmentin bid for 5 days. Potential red flag symptoms discussed with the patient. Reviewed appropriate action plan to take if red flag symptoms occur. Patient agreeable to treatment plan. Charissa Watters APRN.CARLIE [facility] Instructions 01-25-2022 Patient Instructions Note Date & Type Note Facility 01-25-2022 Instructions Charissa Watters APRN.CARLIE - 01/25/2022 8:34 AM EDT 1.) Get more rest than you usually do - this will speed your recovery. If you push hard with your usual busy schedule, you will be sicker longer. 2.) Drink a lot of water - enough to make you urinate every 2-3 hours (your urine should be a light yellow color). This helps thin the phlegm and sooth the airways. Gatorade (G2) is less in sugar and replaces your electrolytes if not eating well. 3.) Run a cool mist humidifier in your bedroom on high with the door closed. This is a natural way to decongest, and it helps lessen scratchy throats, nasal stuffiness and coughs. 4.) For those without blood pressure concerns, take Sudafed as a decongestant (decreases stuffiness-lets drain), but realize that you will need to take it every 4-6 hours for several days. The lower dose is generally better tolerated (30mg)... Some people can make feel fast heart rate/jittery. You also may try anti-allergy pill like Claritin(loratidine) 10mg or aileen, benadryl (makes sleepy) over the counter as directed to help with drippy nose. Mucinex 600-1200mg twice daily(plain) may help thin secretions so they are easier to cough up. Those with high blood pressure and not with prostate problems can try [id number] Coricidin HBP for congestion. You may find nasal sprays such as Flonase or Nasacort, saline nasal spray and/or Netti Pot may be beneficial 5.) Take ibuprofen or acetominophen every 4-6 hours for pain/aches as needed if not contraindicated for you. Antibiotic as directed per prescription If you should breakout in a rash, stop the medicine and call the office. Any antibiotic has the potential to cause diarrhea due to alteration in the normal bacterial jhonatan of the gut. This can be reduced by eating yogurt with active cultures or taking probiotics daily while on the medication. If diarrhea becomes severe (watery, large volumes or more than 3-4/day) call the office. Women may experience yeast vaginitis due to alteration in the vaginal jhonatan. Symptoms include vaginal itching, irritation, and often a clumpy white discharge. If this occurs, there are several effective over the counter remedies available, including one-dose treatments. If these are unsuccessful, call the office. Antibiotics may interfer with control. If you are on oral contraceptives, use another form of protection (condoms, foams, jellies, diaphragm) throught the end of whatever pill pack you are on in 10 days. If you are not improving in 3-5 days or are worsening follow up with PCP documented in this encounter [facility] History of Present illness Narrative 01-25-2022 Charissa Watters APRN.GENETIC SCIENTIST - 01/25/2022 8:33 AM EDT Note Date & Type Note Facility 01-25-2022 History of Presen t illness Narrative CC: Patient presents with: Sinus Problem: sinus pressure, drainage, cough x 1 week HPI: Luciano Armando is a 51 year old male who presents to the office with complaint of cough, nonproductive and sinus symptoms for a week. Symptoms are worsening Associated symptoms includes facial pain/pressure and cough. Denies nausea, vomiting and diarrhea. Treatments tried include nothing so far. with no relief of symptoms. Sick contacts: unknown. History of asthma, frequent episodes of bronchitis, chronic bronchitis, bronchiectasis or COPD: No Smoker: No Seasonal/environmental allergies: No The ROS is otherwise negative. The patient's pmh, medications, allergies, and past visits are reviewed. PHYSICAL EXAM: BP 134/86 Pulse 80 Temp 36.7 C (98 F) Resp 16 Wt 101.2 kg (223 lb) SpO2 97% General appearance: alert, cooperative, pleasant, in no acute distress Head: Normocephalic Eyes: EOM's intact, conjunctiva pink and moist, no icterus, sclera white, non-injected Ears: Right ear: External ear/canal- Normal, TM - clear with good landmarks. Left ear: External ear/canal- Normal, TM - clear with good landmarks Oropharynx:moist without lesions, No erythema, exudates or tonsillar hypertrophy. Heart: Negative. RRR without obvious murmur, gallop, or rubs. No ectopy. Lungs: clear to auscultation, without rales or wheeze, good air exchange PAST MEDICAL HISTORY Diagnosis Date NEGATIVE MEDICAL HISTORY PAST SURGICAL HISTORY Procedure Laterality Date ankle 1996 right surgery LAPAROSCOPIC APPENDECTOMY 2004 LASIK PROCEDURE 1999 bilat eyes ALLERGIES Patient has no known allergies. MEDICATIONS lisinopril-hydrochlorothiazide (PRINZIDE,ZESTORETIC) 10-12.5 mg per tablet Take 1 tablet by mouth once daily. amoxicillin-clavulanic acid (AUGMENTIN) 875-125 mg per tablet Take 1 tablet by mouth twice daily for 5 days. No family history on file. Social History Tobacco Use Smoking status: Former Smoker Packs/day: 1.00 Years: 20.00 Pack years: 20.00 Types: Cigarettes Smokeless tobacco: Never Used Substance Use Topics Alcohol use: Yes Comment: rarely Drug use: Not on file ASSESSMENT/PLAN: 1. Sinus congestion - ICD9: 478.19, ICD10: R09.81 Prescription instructions reviewed with patient as applicable. Augmentin bid for 5 days. Potential red flag symptoms discussed with the patient. Reviewed appropriate action plan to take if red flag symptoms occur. Patient agreeable to treatment plan. Charissa Watters APRN.CARLIE documented in this encounter [facility] Progress note 09-23-2021 Note Date & Type Note Facility 09-23-2021 Note HNO ID: [id number] Author: Evens Hernández APRN.CNP Service: ? Author Type: Nurse Practitioner Type: Progress Notes Filed: 09/23/2021 2:40 PM Note Text: Patient triaged at [facility]. Here today with sudden onset severe back pain, heartburn/no history, and left arm numbness/no history. I discussed limitations of [facility] care and referred patient to ER. Patient declined squad. Will drive pov to [facility] ER. [facility] Progress note 09-08-2021 Note Date & Type Note Facility 09-08-2021 Note HNO ID: [id number] Author: Dariusz Varghese APRN.GENETIC SCIENTIST Service: ? Author Type: Nurse Practitioner Type: Progress Notes Filed: 09/08/2021 2:08 PM Note Text: Subjective HPI Nontoxic-appearing male presents urgent care chief complaint decreased hearing left ear. Duration of symptoms 1 week. Associated symptoms decreased hearing. Patient states feels he has water in his ear hearing is muffled left side. States he does wear earplugs at work. Denies history of cerumen impaction. Denies any OTC medication use denies any pain. Known sick contacts denies any fever body aches chills cough chest pain shortness of breath otalgia otorrhea or ear trauma headaches dizziness or change in bowel or bladder habits. Past medical history prescription medications allergies reviewed. .Patient presents with: Ear Problem: LT x 1 week PAST MEDICAL HISTORY Diagnosis Date - NEGATIVE MEDICAL HISTORY PAST SURGICAL HISTORY Procedure Laterality Date - ankle 1996 right surgery - LAPAROSCOPIC APPENDECTOMY 2004 - LASIK PROCEDURE 1999 bilat eyes ALLERGIES Patient has no known allergies. MEDICATIONS lisinopril-hydrochlorothiazide (PRINZIDE,ZESTORETIC) 10-12.5 mg per tablet Take 1 tablet by mouth once daily. History reviewed. No pertinent family history. Social History Tobacco Use - Smoking status: Former Smoker Packs/day: 1.00 Years: 20.00 Pack years: 20.00 Types: Cigarettes - Smokeless tobacco: Never Used Substance Use Topics - Alcohol use: Yes Comment: rarely - Drug use: Not on file BP 132/84 Pulse 80 Temp 36.3 ?C (97.3 ?F) (Tympanic) Resp 16 Wt 103.4 kg (228 lb) SpO2 98% Review of Systems Constitutional: Negative for chills, fever and malaise/fatigue. HENT: Negative for congestion, ear discharge, ear pain, hearing loss, sinus pain, sore throat and tinnitus. Eyes: Negative for blurred vision, pain, discharge and redness. Respiratory: Negative for cough, hemoptysis, sputum production, shortness of breath, wheezing and stridor. Cardiovascular: Negative for chest pain. Gastrointestinal: Negative for abdominal pain, diarrhea, nausea and vomiting. Musculoskeletal: Negative for myalgias. Skin: Negative for itching and rash. Neurological: Negative for dizziness and headaches. Objective Physical Exam Vitals and nursing note reviewed. Constitutional: General: He is not in acute distress. Appearance: He is not diaphoretic. HENT: Head: Normocephalic and atraumatic. Jaw: No trismus. Right Ear: Hearing, tympanic membrane, ear canal and external ear normal. No decreased hearing noted. No drainage, swelling or tenderness. Tympanic membrane is not perforated, erythematous or bulging. Left Ear: Hearing, tympanic membrane, ear canal and external ear normal. No decreased hearing noted. No drainage, swelling or tenderness. There is impacted cerumen. Tympanic membrane is not perforated, erythematous or bulging. Ears: Comments: Initially left TM was not visible due to cerumen impaction. Ears irrigated by MA. Moderate amount of cerumen retrieved. Patient states spontaneous improvement of hearing. Tolerated well. TM intact pearly higgins post irrigation Mouth/Throat: Mouth: Mucous membranes are moist. Pharynx: Oropharynx is clear. Uvula midline. No oropharyngeal exudate, posterior oropharyngeal erythema or uvula swelling. Tonsils: No tonsillar abscesses. Eyes: General: Right eye: No discharge. Left eye: No discharge. Conjunctiva/sclera: Conjunctivae normal. Pupils: Pupils are equal, round, and reactive to light. Cardiovascular: Rate and Rhythm: Normal rate and regular rhythm. Heart sounds: Normal heart sounds. Pulmonary: Effort: Pulmonary effort is normal. No tachypnea, accessory muscle usage or respiratory distress. Breath sounds: Normal breath sounds. No stridor. No wheezing or rales. Chest: Chest wall: No tenderness. Abdominal: Palpations: Abdomen is soft. Tenderness: There is no abdominal tenderness. Musculoskeletal: General: No tenderness. Normal range of motion. Cervical back: Normal range of motion and neck supple. No rigidity or tenderness. Lymphadenopathy: Head: Right side of head: No submental, submandibular, tonsillar, preauricular, posterior auricular or occipital adenopathy. Left side of head: No submental, submandibular, tonsillar, preauricular, posterior auricular or occipital adenopathy. Cervical: No cervical adenopathy. Right cervical: No superficial or posterior cervical adenopathy. Left cervical: No superficial or posterior cervical adenopathy. Skin: General: Skin is warm and dry. Findings: No rash. Neurological: Mental Status: He is alert and oriented to person, place, and time. ASSESSMENT/PLAN: 1. Hearing loss due to cerumen impaction, left - ICD9: 389.8, 380.4, ICD10: H61.22 Patient diagnosis cerumen impaction. Successfully irrigated. TM intact pearly higgins post irrigation. Improvement (more content not included)... [facility] Evaluation note Note Date & Type Note Facility documented in this encounter [facility] Evaluation note Note Date & Type Note Facility documented in this encounter [facility] Summary Purpose Family History No Family History Records FoundNo Family History Records Found Advance Directives No Advanced Directives Records FoundNo Advanced Directives Records Found Additional Source Comments (unrecognized sect ion and content) No Status Records FoundNo Status Records Found INFORMATION SOURCE (unrecogn ized section and content) DATE CREATED AUTHOR AUTHOR'S ORGANIZ ATION 01/27/2022 [facility] Source Comments (unrecognize d section and content) In the event this informatio n is protected by the Federal Confidentiality of Alcohol and Drug Abuse Patient Records regulations: The Federal rules restrict any use of the information to criminally investigate or prosecute any alcohol or drug abuse patient.[facility] the event this information is protected by the Federal Confidentiality of Alcohol and Drug Abuse Patient Records regulations: The Federal rules restrict any use of the information to criminally investigate or prosecute any alcohol or drug abuse patient.[facility] the event this information is protected by the Federal Confidentiality of Alcohol and Drug Abuse Patient Records regulations: The Federal rules restrict any use of the information to criminally investigate or prosecute any alcohol or drug abuse patient.[facility] the event this information is protected by the Federal Confidentiality of Alcohol and Drug Abuse Patient Records regulations: The Federal rules restrict any use of the information to criminally investigate or prosecute any alcohol or drug abuse patient.[facility] the event this information is protected by the Federal Confidentiality of Alcohol and Drug Abuse Patient Records regulations: The Federal rules restrict any use of the information to criminally investigate or prosecute any alcohol or drug abuse patient.[facility] Reason for Visit (unrecogniz ed section and content) Reason Comments Refill Request Care Teams (unrecognized sec tion and content) [employer] Relationship Specialty Start Date End Date Lee Stewart MD PCP - General Family Practice 04/13/16 [employer]st Relationship Specialty Start Date End Date Lee Stewart MD PCP - General Family Medicine 04/13/16 [employer]st Relationship Specialty Start Date End Date Lee Stewart MD PCP - General Family Medicine 04/13/16 [employer]st Relationship Specialty Start Date End Date Lee Stewart MD PCP - General Family [facility] 04/13/16 FOR RECORDS PERTAINING TO PATIENTS WHO ARE OR HAVE BEEN ENROLLED IN A CHEMICAL DEPENDENCY/SUBSTANCEABUSE PROGRAM, SOME INFORMATION MAY BE OMITTED. This clinical summary was aggregated from multiple sources. Caution should be exercised in using it in the provision of clinical care. This summary normalizes information from multiple sources, and as a consequence, information in this document may materially change the coding, format and clinical context of patient data. In addition, data may be omitted in some cases. CLINICAL DECISIONS SHOULD BE BASED ON THE PRIMARY CLINICAL RECORDS. [facility] [employer] [facility]. provides no warranty or guarantee of the accuracy or completeness of information in this document.
[2023-10-03 08:53] LABS: Absolute Lymphocyte Count 1.09 X10^3/uL (0.83-4.51); Absolute Neutrophil Count 3.1 X10^3/uL (2.0-7.7); Basophil# 0.03 X10^3/uL; Basophil% 0.6 % (0-1); Eosinophil# 0.09 X10^3/uL; Eosinophils% 1.9 % (0-5); Hematocrit 44.5 % (40-54); Hemoglobin 14.8 g/dL (13.0-16.5); Lymphocyte # 1.09 X10^3/ul (0.83-4.51); Lymphocyte % 22.9 % (19-41); Mean Corp Hgb Conc 33.3 g/dL (32-36); Mean Corpuscular Hgb 28.1 pg (27.0-32.0); Mean Corpuscular Volume 84.4 fL (80-94); Mean Platelet Vol. 10.1 fl (6.2-12.0); Monocyte# 0.43 X10^3/uL; NRBC Flagged by Analyzer 0 % (0-5); Neutrophil # 3.09 X10^3/uL (2.7-7.7); Platelet Count 279 K/mm3 (150-450); RBC Distribution Width CV 12.8 % (11.6-14.6); RBC Distribution Width SD 39.2 fl (35.1-43.9); Red Blood Count 5.27 M/mm3 (4.6-6.2); White Blood Count 4.8 K/mm3 (4.4-11.0)
[2023-10-03 09:27] LABS: ALB/GLOB Ratio 1.1 RATIO (0.9-2.4); AST(SGOT) 36 U/L (15-37); Alanine Aminotransfer ALT/SGPT 55 U/L (16-61); Albumin, Serum 3.7 g/dL (3.2-5.0); Alkaline Phosphatase 94 U/L (45-117); Anion Gap 3 (5-15); BUN 16 mg/dL (7-18); BUN/Creat Ratio 15.7 RATIO (10-20); Calcium,Total 9.5 mg/dL (8.5-10.1); Chloride 108 mmol/L (98-107); Cholesterol 150 mg/dL (200); Creatinine, Serum 1.02 mg/dL (0.70-1.30); EST Glomerular Filtration Rate 81 mL/min (>60); Est Glom Filt Rate - Afr Amer 98 mL/min (>60); Globulin 3.5 g/dL (2.2-4.2); Glucose 94 mg/dL (74-106); High Density Lipoprotein 43 mg/dL; Potassium 4.5 mmol/L (3.5-5.1); Protein, Total 7.2 g/dL (6.4-8.2); Sodium Level 140 mmol/L (136-145); Triglycerides 200 mg/dL; Very Low Density Lipoprotein 40 mg/dL (5-40)
== END | disposition home or self-care (01) ==
LOC: LAB 08:21
PROVIDERS: PCP Family Medicine; Visit Provider Family Medicine
DX: Z00.00 Encounter for general adult medical examination without abnormal findings (principal); I10 Essential (primary) hypertension; E78.5 Hyperlipidemia, unspecified
CPT/HCPCS: 36415; 80053; 80061; 85025

== ENCOUNTER → 2024-08-22 | Outpatient (CLI) | payer BC, SELFPAY ==
[2024-08-22 06:46] LABS: Absolute Lymphocyte Count 1.26 X10^3/uL (0.83-4.51); Absolute Neutrophil Count 3.7 X10^3/uL (2.0-7.7); Basophil# 0.04 X10^3/uL; Basophil% 0.7 % (0-1); Eosinophil# 0.11 X10^3/uL; Eosinophils% 1.9 % (0-5); Hematocrit 43.7 % (40-54); Hemoglobin 14.6 g/dL (13.0-16.5); Lymphocyte # 1.26 X10^3/ul (0.83-4.51); Lymphocyte % 21.9 % (19-41); Mean Corp Hgb Conc 33.4 g/dL (32-36); Mean Corpuscular Hgb 28.7 pg (27.0-32.0); Mean Corpuscular Volume 85.9 fL (80-94); Mean Platelet Vol. 10.3 fl (6.2-12.0); Monocyte# 0.55 X10^3/uL; Monocyte% 9.6 % (0-10); NRBC Flagged by Analyzer 0 % (0-5); Neutrophil # 3.71 X10^3/uL (2.7-7.7); Neutrophil % 64.5 % (47-70); Platelet Count 251 K/mm3 (150-450); RBC Distribution Width CV 13.1 % (11.6-14.6); RBC Distribution Width SD 41.2 fl (35.1-43.9); Red Blood Count 5.09 M/mm3 (4.6-6.2); White Blood Count 5.8 K/mm3 (4.4-11.0)
[2024-08-22 07:03] LABS: ALB/GLOB Ratio 1.3 RATIO (0.9-2.4); AST(SGOT) 26 U/L (15-37); Alanine Aminotransfer ALT/SGPT 52 U/L (16-61); Albumin, Serum 3.9 g/dL (3.2-5.0); Alkaline Phosphatase 91 U/L (45-117); Anion Gap 8 (5-15); BUN 19 mg/dL (7-18); BUN/Creat Ratio 21.9 RATIO (10-20); Calcium,Total 9.1 mg/dL (8.5-10.1); Chloride 109 mmol/L (98-107); Cholesterol 156 mg/dL (200); Creatinine, Serum 0.87 mg/dL (0.70-1.30); EST Glomerular Filtration Rate 97 mL/min (>60); Est Glom Filt Rate - Afr Amer 117 mL/min (>60); Globulin 3.1 g/dL (2.2-4.2); Glucose 105 mg/dL (74-106); High Density Lipoprotein 50 mg/dL; Sodium Level 143 mmol/L (136-145); Triglycerides 172 mg/dL; Very Low Density Lipoprotein 34 mg/dL (5-40)
== END | disposition home or self-care (01) ==
LOC: LAB 06:08
PROVIDERS: PCP Family Medicine; Referring Provider Family Medicine; Visit Provider Family Medicine
DX: Z00.00 Encounter for general adult medical examination without abnormal findings (principal); I10 Essential (primary) hypertension; E78.5 Hyperlipidemia, unspecified
CPT/HCPCS: 36415; 80053; 80061; 85025

== ENCOUNTER → 2024-10-18 | Outpatient (CLI) | payer BC, SELFPAY ==
[2024-10-18 15:48] LABS: PSA,Total - Annual Screen 1.04 ng/mL (0.00-4.00)
== END | disposition home or self-care (01) ==
LOC: LAB 14:49
PROVIDERS: PCP Family Medicine; Referring Provider Nurse Practitioner; Visit Provider Nurse Practitioner
DX: Z12.5 Encounter for screening for malignant neoplasm of prostate (principal)
CPT/HCPCS: 36415; 84153; G0103

== ENCOUNTER → 2025-08-18 | Outpatient (CLI) | payer BC, SELFPAY ==
[2025-08-18 10:20] LABS: Hematocrit 44.1 % (40-54); Hemoglobin 14.6 g/dL (13.0-16.5); Immature Granulocytes Count 0.030 X10^3/uL (0.0-0.0); Mean Corp Hgb Conc 33.1 g/dL (32-36); Mean Corpuscular Volume 85.6 fL (80-94); Mean Platelet Vol. 10.1 fl (6.2-12.0); NRBC Flagged by Analyzer 0 % (0-5); Platelet Count 284 K/mm3 (150-450); RBC Distribution Width CV 12.8 % (11.6-14.6); RBC Distribution Width SD 40.1 fl (35.1-43.9); Red Blood Count 5.15 M/mm3 (4.6-6.2); White Blood Count 4.8 K/mm3 (4.4-11.0)
[2025-08-18 11:09] LABS: AST(SGOT) 28 U/L (<=37); Alanine Aminotransfer ALT/SGPT 35 U/L (<=46); Albumin, Serum 4.4 g/dL (3.5-5.0); Alkaline Phosphatase 90 U/L (40-129); Anion Gap 9 (5-15); BUN 14 mg/dL (4-19); BUN/Creat Ratio 16.2 RATIO (10-20); Calcium,Total 9.6 mg/dL (7.6-11.0); Carbon Dioxide 25.4 mmol/L (21.0-32.0); Chloride 106 mmol/L (98-108); Cholesterol 149 mg/dL (<=200); Globulin 2.8 g/dL (2.2-4.2); Glucose 91 mg/dL (70-99); Low Density Lipoprotein Calc. 74 mg/dL; Potassium 4.6 mmol/L (3.3-5.1); Triglycerides 176 mg/dL; Very Low Density Lipoprotein 35 mg/dL (5-40); cholesterol:hdl ratio screen 3.33
== END | disposition home or self-care (01) ==
LOC: MTLAB 08:41
PROVIDERS: PCP Family Medicine; Referring Provider Family Medicine; Visit Provider Family Medicine
DX: Z00.00 Encounter for general adult medical examination without abnormal findings (principal); I10 Essential (primary) hypertension; E78.5 Hyperlipidemia, unspecified
CPT/HCPCS: 36415; 80053; 80061; 85025